=== PATIENT | male | born 1945 | race Caucasian/White ===

== ENCOUNTER 2023-07-19 11:23 | Inpatient (IN) | payer MEDICARE, SELFPAY ==
[2023-07-19] VITALS (18 sets, daily range): BP systolic 126–157; BP diastolic 63–94; PULSE 88–113; RESP 9–18; TEMP 36.4–37.4; O2SAT 95–100; BMI 31.8; BMI 30.5
--- NOTE | 2023-07-19 11:58 | EKG12_ITS ---
Test Reason : Blood Pressure : / mmHG Vent. Rate : 102 BPM Atrial Rate : 102 BPM P-R Int : 168 ms QRS Dur : 090 ms QT Int : 362 ms P-R-T Axes : 045 -01 018 degrees QTc Int : 471 ms Sinus tachycardia with occasional Premature ventricular complexes Nonspecific ST abnormality Abnormal ECG Confirmed by Raymond Smith ([id number]), purchase request editor SIRIA GRIFFIN ([id number]) on 07/22/2023 2:14:32 PM Referred By: Cristian Hurtado Confirmed By:Raymond Smith
--- NOTE | 2023-07-19 12:02 | EX.ED.DYSGE1 ---
HPI <TANA Collado - Last Filed: 07/19/23 15:33> History of Present Illness Chief Complaint: Confusion Narrative Narrative: Patient presenting today due to generalized weakness that started about 2 weeks ago. He reports that he lives by himself, he does not have much family around, he does not like to leave the house much except to go to the grocery store and do his laundry. However, over the past 2 weeks he reports that he has, given up due to feeling tired and weak. He called his cousin to let her know what was going on and she became concerned and called EMS. Patient is AxO x4. He reports that he has been struggling with constipation over the past 2 weeks, last bowel movement was yesterday and was normal for him. He has had intermittent upper abdominal pain over the past 2 weeks. No previous abdominal surgeries. Patient does not have a PCP and denies having any chronic health conditions. He reports that he has been losing weight over the past few months without trying. He also endorses bilateral leg pain that has been a chronic issue for him and recently has made it harder for him to move around. He denies any recent fevers, chills, nausea, vomiting, chest pain, shortness of breath. [facility] <TANA Collado - Last Filed: 07/19/23 15:33> [facility] Home Medications NK 07/19/23 [History Last Taken Unknown] Allergy/AdvReac Type Severity Reaction Status Date / Time No Known Allergies Allergy Verified 07/19/23 11:24 Social History Smoking Status: Never smoker ROS <TANA Collado - Last Filed: 07/19/23 15:33> ROS ED Constitutional Constitutional ED: Denies chills or fever(s) Cardiovascular Cardiovascular: Denies chest pain Respiratory/Chest Respiratory/Chest: Denies cough or dyspnea Gastrointestinal Gastrointestinal: Reports abdominal pain and constipation; Denies nausea or vomiting Genitourinary Genitourinary ED: Denies dysuria, hematuria or urinary urgency Musculoskeletal Musculoskeletal: Reports myalgias Integumentary Denies rash Neurologic Neurologic: Reports weakness; Denies confusion EXAM <TANA Collado Last Filed: 07/19/23 15:33> Physical Exam Const Vital Signs: 07/19/23 11:26 07/19/23 13:24 Temperature 97.8 F Temperature Source Oral Pulse Rate 113 H 95 Respiratory Rate 18 9 L Blood Pressure 151/67 H Blood Pressure Mean 95 Pulse Ox 100 95 Oxygen Delivery Method Room Air Room Air Positive well nourished, well developed and no apparent distress Constitutional Narrative: Pale appearing General Appearance ED: well developed HEENT Reports normocephalic and head/scalp atraumatic Mouth ED: Yes moist mucous membranes normal Eyes PERRL and EOMs intact bilaterally Neck full ROM and supple Chest Wall inspection of chest normal Resp normal respiratory effort and clear to auscultation bilaterally Cardio regular rate and regular rhythm GI soft to palpation, non-tender, non-distended and no masses Back/Spine normal ROM and normal to inspection Extremity normal to inspection and full ROM Neuro oriented x3, CN's II-XII intact bilaterally, moves all extremities, no focal motor deficits and no sensory deficits noted Sensorium / Orientation: awake and alert Psych mental status grossly normal and thought process normal Skin no rashes or lesions noted and no wounds <Dr. Cristian Hurtado DO - Last Filed: 07/19/23 21:39> Physical Exam Const Vital Signs: 07/19/23 11:26 07/19/23 13:24 Temperature 97.8 F Temperature Source Oral Pulse Rate 113 H 95 Respiratory Rate 18 9 L Blood Pressure 151/67 H Blood Pressure Mean 95 Pulse Ox 100 95 Oxygen Delivery Method Room Air Room Air [facility] <TANA Collado - Last Filed: 07/19/23 15:33> [facility] Narrative Medical decision making narrative: Patient presenting due to generalized weakness over the past 2 weeks. He initially did not want to come to the hospital due to concerns for financial aspect of being seen. However, he is willing to have a workup. Triage note does say that patient is confused, however patient is not confused on examination at all. He reports that he was confused as to why EMS came to his house because he did not call them, but then realized it was probably his cousin who called for him to be seen after he had a phone call with her this morning. Patient is very pale appearing. He reports that he does not go outside much and that is normal for him. He denies any melena/hematochezia. Labs will be obtained to rule out leukocytosis, anemia, electrolyte abnormality, JAYNA, UTI, ACS, and hepatobiliary etiology. He reports that he has had this generalized upper abdominal pain intermittently for the past 2 weeks, his abdomen is soft and nontender on exam. Patient's hemoglobin did come back at 3.6. He will be transfused 2 units. I did speak with Dr. Patiño who recommends Protonix 40 mg twice daily and admission to the hospital for further workup. Spoke with the hospitalist, he will be admitted in stable condition and is comfortable with plan. Lab Data Attestation: I reviewed the patient's lab results. Lab results narrative: H&H of 3.6 and 12.1, sodium 135, BUN 24. Labs: Laboratory Results - last 24 hr 07/19/23 07/19/23 12:20 12:20 WBC 9.7 RBC 1.40 L Hgb 3.6 L* Hct 12.1 L MCV 86.4 MCH 25.7 L MCHC 29.8 L RDW Std Deviation 42.8 RDW Coeff of Geena 13.8 Plt Count 369 MPV 8.5 Immature Gran % (Auto) 0.800 Neut % (Auto) 91.0 H Lymph % (Auto) 3.9 L [place] % (Auto) 4.1 Eos % (Auto) 0.1 Baso % (Auto) 0.1 Absolute Neuts (auto) 8.8 H Absolute Lymphs (auto) 0.38 L Nucleated RBC % 0.2 Diff Path Review May foll Hypochromasia 3+ Anisocytosis 2+ Sodium 135 L Potassium 3.8 Chloride 103 Carbon Dioxide 27.0 Anion Gap 5 BUN 24 H Creatinine 0.95 Estim Creat Clear Calc 77.48 Est GFR (MDRD) Af Amer 99 Est GFR (MDRD) Non-Af 82 BUN/Creatinine Ratio 25.3 H Glucose 135 H Calcium 8.0 L Iron 12 L TIBC 334 Iron Saturation 3.6 L Ferritin 4 L Total Bilirubin 0.50 AST 10 L ALT 12 L Alkaline Phosphatase 69 Troponin I High Sens 13 Total Protein 5.6 L Albumin 2.4 L Globulin 3.2 Albumin/Globulin Ratio 0.8 L Lipase 27 Blood Type A POSITIVE Antibody Screen NEGATIVE Crossmatch See Detail See Detail Radiography X-Ray: Read by ED Physician and Read by Radiologist Diagnostic Testing: Clinical Impression(s) from Imaging Studies Chest X-Ray 07/19/23 12:35 IMPRESSION: No acute cardiopulmonary process identified. Electronically Signed: Erin Peace MD at 12:52 EST , <Dr. Cristian Hurtado, DO - Last Filed: 07/19/23 21:39> [facility] Narrative Medical decision making narrative: Patient presenting due to generalized weakness over the past 2 weeks. He initially did not want to come to the hospital due to concerns for financial aspect of being seen. However, he is willing to have a workup. Triage note does say that patient is confused, however patient is not confused on examination at all. He reports that he was confused as to why EMS came to his house because he did not call them, but then realized it was probably his cousin who called for him to be seen after he had a phone call with her this morning. Patient is very pale appearing. He reports that he does not go outside much and that is normal for him. He denies any melena/hematochezia. Labs will be obtained to rule out leukocytosis, anemia, electrolyte abnormality, JAYNA, UTI, ACS, and hepatobiliary etiology. He reports that he has had this generalized upper abdominal pain intermittently for the past 2 weeks, his abdomen is soft and nontender on exam. Patient's hemoglobin did come back at 3.6. He will be transfused 2 units. I did speak with Dr. Patiño who recommends Protonix 40 mg twice daily and admission to the hospital for further workup. Spoke with the hospitalist, he will be admitted in stable condition and is comfortable with plan. Attending note: Patient seen and evaluated with airborne and air delivery specialist. I perform my own [id number] evaluation. I agree with the plan of work-up. Increasing weakness over the last 2 weeks lightheaded over the last 2 days. Has not seen a doctor in years. Cousin called for EMS well check. He did not understand why he was brought here. He does report some dark stools for a long time edition taken Pepto-Bismol here recently. No history endoscopies in the past. No blood thinners. Exam clinically diffuse pallor. Rectal exam by airborne and air delivery specialist with direct stools positive. Workup EKG sinus rhythm rate of 102 with occasional PVCs. Lab work returned hemoglobin 3.6 blood pressure stable. Ordered for blood after consent. Discussed with GI, continue Protonix he will be seen as an inpatient. No antibiotics at this time recommendations. Discussed with hospitalist for admission. Lab Data Labs: Laboratory Results - last 24 hr 07/19/23 07/19/23 12:20 12:20 WBC 9.7 RBC 1.40 L Hgb 3.6 L* Hct 12.1 L MCV 86.4 MCH 25.7 L MCHC 29.8 L RDW Std Deviation 42.8 RDW Coeff of Geena 13.8 Plt Count 369 MPV 8.5 Immature Gran % (Auto) 0.800 Neut % (Auto) 91.0 H Lymph % (Auto) 3.9 L [place] % (Auto) 4.1 Eos % (Auto) 0.1 Baso % (Auto) 0.1 Absolute Neuts (auto) 8.8 H Absolute Lymphs (auto) 0.38 L Nucleated RBC % 0.2 Diff Path Review May foll Hypochromasia 3+ Anisocytosis 2+ Sodium 135 L Potassium 3.8 Chloride 103 Carbon Dioxide 27.0 Anion Gap 5 BUN 24 H Creatinine 0.95 Estim Creat Clear Calc 77.48 Est GFR (MDRD) Af Amer 99 Est GFR (MDRD) Non-Af 82 BUN/Creatinine Ratio 25.3 H Glucose 135 H Calcium 8.0 L Iron 12 L TIBC 334 Iron Saturation 3.6 L Ferritin 4 L Total Bilirubin 0.50 AST 10 L ALT 12 L Alkaline Phosphatase 69 Troponin I High Sens 13 Total Protein 5.6 L Albumin 2.4 L Globulin 3.2 Albumin/Globulin Ratio 0.8 L Lipase 27 Blood Type A POSITIVE Antibody Screen NEGATIVE Crossmatch See Detail See Detail Radiography Diagnostic Testing: Clinical Impression(s) from Imaging Studies Chest X-Ray 07/19/23 12:35 IMPRESSION: No acute cardiopulmonary process identified. Electronically Signed: Erin Peace MD at 12:52 EST , Discharge Plan Dx/Rx/DC Orders Clinical Impression: Anemia, Weakness, Acute GI bleeding Disposition Disposition: Acute Care Hospital [facility] Discharge Date/Time: 07/19/23 15:15
[2023-07-19 12:35] LABS: Absolute Lymphocyte Count 0.38 X10^3/uL (0.83-4.51); Absolute Neutrophil Count 8.8 X10^3/uL (2.0-7.7); Basophil# 0.01 X10^3/uL; Basophil% 0.1 % (0-1); Eosinophil# 0.01 X10^3/uL; Eosinophils% 0.1 % (0-5); Hematocrit 12.1 % (40-54); Hemoglobin 3.6 g/dL (13.0-16.5); Lymphocyte # 0.38 X10^3/ul (0.83-4.51); Lymphocyte % 3.9 % (19-41); Mean Corp Hgb Conc 29.8 g/dL (32-36); Mean Corpuscular Hgb 25.7 pg (27.0-32.0); Mean Corpuscular Volume 86.4 fL (80-94); Mean Platelet Vol. 8.5 fl (6.2-12.0); Monocyte% 4.1 % (0-10); NRBC Flagged by Analyzer 0.2 % (0-5); Neutrophil # 8.81 X10^3/uL (2.7-7.7); POSITIVE COUNT YES; POSITIVE DIFFERENTIAL YES; Platelet Count 369 K/mm3 (150-450); RBC Distribution Width CV 13.8 % (11.6-14.6); RBC Distribution Width SD 42.8 fl (35.1-43.9); White Blood Count 9.7 K/mm3 (4.4-11.0)
--- NOTE | 2023-07-19 12:35 | RAD_ITS ---
HISTORY: weakness. TECHNIQUE: XR Chest 2 Views. COMPARISON: None. FINDINGS: CARDIOMEDIASTINAL BORDERS: Cardiac silhouette within normal limits in size. Mediastinal contour unremarkable. LUNGS: Radiographically clear. PLEURA: No pleural effusion or pneumothorax seen. OSSEOUS STRUCTURES: Degenerative change. RAD/Chest PA and Lateral IMPRESSION: No acute cardiopulmonary process identified. Electronically Signed: Erin Peace MD at 12:52 EST ,
[2023-07-19 12:44] LABS: Differential Indicated SCAN CRITERIA MET
[2023-07-19 12:47] LABS: ALB/GLOB Ratio 0.8 RATIO (0.9-2.4); AST(SGOT) 10 U/L (15-37); Alanine Aminotransfer ALT/SGPT 12 U/L (16-61); Albumin, Serum 2.4 g/dL (3.2-5.0); Alkaline Phosphatase 69 U/L (45-117); Anion Gap 5 (5-15); BUN 24 mg/dL (7-18); BUN/Creat Ratio 25.3 RATIO (10-20); Chloride 103 mmol/L (98-107); Creatinine, Serum 0.95 mg/dL (0.70-1.30); EST Glomerular Filtration Rate 82 mL/min (>60); Est Glom Filt Rate - Afr Amer 99 mL/min (>60); Estimated Creatinine Clearance 77.48 ml/min; Globulin 3.2 g/dL (2.2-4.2); Glucose 135 mg/dL (74-106); Lipase 27 U/L (13-75); Potassium 3.8 mmol/L (3.5-5.1); Protein, Total 5.6 g/dL (6.4-8.2); Sodium Level 135 mmol/L (136-145); Troponin-I HS 13 pg/mL (3.0-78.0)
[2023-07-19 13:17] LABS: Anisocytosis 2+; Hypochromasia 3+
--- NOTE | 2023-07-19 13:44 | HP.PCM_ITS ---
HPI - General General Date of Admission: 07/19/23 Date of Service: 07/19/23 Chief Complaint: weakness, debility HPI Narrative PAYTON GILL, is a 78 M with a PMH as outlined who presents via the ED on 07/19/2023 with a complaint of confusion and weakness. He lives alone with no close family around. He has been getting weaker over hte last couple of weeks and said he had been struggling with constipation. He has had episodic abdominal pain.He says he has had dark stools but thought it was due to peptobismol he was taking for constipation. He denied any nausea, vomiting, fever, chills or any other symptoms. He called his cousin to tell him how he was feeling. His cousin called the EMS to bring him in to the ED. He also had associated unexplained weight loss over the last couple of months. Vitals in the ED were WI of 95. RR of 9. oxygen sats of 95% on room air and BP of 151/67. CBC showed hb of 3.6, wbc of 9.7, platelets of 369. Chemistry showed sodium of 135 and potassium of 3.8 as well as Cr of 0.95. CXR showed no acute cardiop ulmonary process. Stool checked per rectal exam in the ED was dark. He was started on protonix IV and is being admitted to be managed for acute debility and weakness due to acute anemia, likely iron deficient. [facility] Home Medications NK 07/19/23 [History Last Taken Unknown] Allergy/AdvReac Type Severity Reaction Status Date / Time No Known Allergies Allergy Verified 07/19/23 11:24 Social History Smoking Status: Never smoker ROS Constitutional Constitutional: Reports anorexia, change in weight, fatigue, malaise, weakness and weight loss; Denies chills or fever(s) Eyes Eyes: Denies change in vision ENT HEENT: Denies dysphagia, headache(s), hearing loss or loss taste/smell Cardiovascular Cardiovascular: Denies chest pain, claudication, palpitations or paroxysmal nocturnal dyspnea Respiratory/Chest Respiratory/Chest: Denies cough, shortness of breath at rest, shortness of breath with exertion or wheezing Gastrointestinal Gastrointestinal: Reports abdominal pain; Denies constipation or diarrhea Genitourinary Genitourinary: Denies dysuria or nocturia Musculoskeletal Musculoskeletal: Denies back pain or muscle weakness Neurologic Neurologic: Reports weakness; Denies confusion, dizziness, focal weakness, headache(s), lack of coordination, numbness or seizures Psychiatric Psychiatric: Denies anxiety or depression Endocrine Endocrinology: Denies change in body appearance Hematologic/Lymphatic Hematologic/Lymphatic: Reports anemia Vital Signs Vital Signs Vital Signs: 07/19/23 11:26 07/19/23 13:24 Temperature 97.8 F Temperature Source Oral Pulse Rate 113 H 95 Respiratory Rate 18 9 L Blood Pressure 151/67 H Blood Pressure Mean 95 Pulse Ox 100 95 Oxygen Delivery Method Room Air Room Air Weight Weight: 222 lb 3.615 oz Body Mass Index (BMI) 31.8 Physical Exam Const alert Constitutional Narrative: very pale mucosa, elderly General Appearance: cooperative and well developed HEENT normocephalic and head/scalp atraumatic HEENT Narrative: dry oral mucosal membranes Eyes PERRL and EOMs intact bilaterally Neck no lymphadenopathy and supple Lymph Lymphatic: no lymphadenopathy noted, no lymphedema noted and lymphedema Resp normal respiratory effort, normal air movement and clear to auscultation bilaterally Cardio regular rate, regular rhythm, S1 normal heart sound, S2 normal heart sound and no murmurs GI normal to inspection, nondistended, normoactive bowel sounds, soft to palpation and non-tender Extremity normal capillary refill, no clubbing, cyanosis or edema and no calf tenderness General Extremity: no tenderness to palpation of joints or extremities Skin General Skin Exam: no breakdown Neuro CN's II-XII intact bilaterally, no focal motor deficits and no sensory deficits noted Motor Exam: strength 5/5 throughout and general weakness Psych thought process normal, cooperative, affect normal and denies homicidal ideation Results Lab / Micro Data 07/19/23 12:20 07/19/23 12:20 Labs: Laboratory Results - last 24 hr 07/19/23 12:20: WBC 9.7, RBC 1.40 L, Hgb 3.6 L*, Hct 12.1 L, MCV 86.4, MCH 25.7 L, MCHC 29.8 L, RDW Std Deviation 42.8, RDW Coeff of Geena 13.8, Plt Count 369, MPV 8.5, Immature Gran % (Auto) 0.800, Neut % (Auto) 91.0 H, Lymph % (Auto) 3.9 L, [place] % (Auto) 4.1, Eos % (Auto) 0.1, Baso % (Auto) 0.1, Absolute Neuts (auto) 8.8 H, Absolute Lymphs (auto) 0.38 L, Nucleated RBC % 0.2, Diff Path Review May foll, Hypochromasia 3+, Anisocytosis 2+, Sodium 135 L, Potassium 3.8, Chloride 103, Carbon Dioxide 27.0, Anion Gap 5, BUN 24 H, Creatinine 0.95, Estim Creat Clear Calc 77.48, Est GFR (MDRD) Af Amer 99, Est GFR (MDRD) Non-Af 82, BUN/Creatinine Ratio 25.3 H, Glucose 135 H, Calcium 8.0 L, Total Bilirubin 0.50, AST 10 L, ALT 12 L, Alkaline Phosphatase 69, Troponin I High Sens 13, Total Protein 5.6 L, Albumin 2.4 L, Globulin 3.2, Albumin/Globulin Ratio 0.8 L, Lipase 27, Blood Type A POSITIVE, Antibody Screen NEGATIVE, Crossmatch See Detail Imaging Radiology Impression Chest X-Ray 07/19/23 12:35 IMPRESSION: No acute cardiopulmonary process identified. Electronically Signed: Erin Peace MD at 12:52 EST Reading Location ID and State: [facility] / [place] Tel , Service support , Assessment & Plan Assessment/Plan (1) Anemia: (2) Weakness: PLAN: Plan #Acute on chronic anemia * etiology unclear, may be due to an underlying malignancy in light of the dark stools and unexplained weight loss * Hb is 3.6 * admit to PCU * check iron profile and ferritin * keep NPO * GI consulted * transfuse with 2 units of PRBCs * IV pantoprazole drip * hydrate gently with iVF NS @ 125cc/hr * #Debilty and failure to thrive * likely due to underlying anemia * PT/OT on board * fall precautions * management of anemia as above * #Elevated blood pressure: * Not a known hypertensive. * Blood pressure has been in the 140s and 150s systolic though was done in the 120 systolic earlier today. IV hydralazine as needed. * If remains elevated will benefit from starting all blood pressure medications. * DVT prophylaxis: SCDs. No anticoagulation due to anemia COde status: full code * Patient counseled extensively about different types of CODE STATUS including full code, DNR CCA and DNR CCA. Patient elects to be full code. He doesnt have any close relatives he would want to be his POA. He does have two cousins but he is not sure he would want either of them to be his POA. He wants to think about it some more and will let the hospitalist team know tomorrow. * Total [id number] time 17 minutes. Charges/Coding Visit Charges Inpatient E&M: 00704 Init Hosp L3 Procedures Hospitalists Procedures: 84138 Advncd Care Plan 30 Min
[2023-07-19] MEDS: Pantoprazole Sodium 40 MG in 0.9% Normal Saline (100mL MB+) 100 ML 330 MG IV (14:00)
[2023-07-19 14:52] LABS: Ferritin 4 ng/mL (26-388); Iron 12 ug/dL (65-175); Iron Binding Capacity,Total 334 ug/dL (250-450); PERCENT IRON SATURATION 3.6 % (15.0-55.0)
[2023-07-19 20:50] LABS: Absolute Lymphocyte Count 1.15 X10^3/uL (0.83-4.51); Absolute Neutrophil Count 6.8 X10^3/uL (2.0-7.7); Basophil# 0.01 X10^3/uL; Basophil% 0.1 % (0-1); Eosinophil# 0.06 X10^3/uL; Eosinophils% 0.7 % (0-5); Hematocrit 15.3 % (40-54); Lymphocyte # 1.15 X10^3/ul (0.83-4.51); Lymphocyte % 13.3 % (19-41); Mean Corpuscular Hgb 26.9 pg (27.0-32.0); Mean Corpuscular Volume 84.1 fL (80-94); Mean Platelet Vol. 8.6 fl (6.2-12.0); Monocyte# 0.56 X10^3/uL; Monocyte% 6.5 % (0-10); NRBC Flagged by Analyzer 0 % (0-5); Neutrophil # 6.78 X10^3/uL (2.7-7.7); Neutrophil % 78.6 % (47-70); POSITIVE COUNT YES; Platelet Count 303 K/mm3 (150-450); RBC Distribution Width CV 14.7 % (11.6-14.6); RBC Distribution Width SD 45.1 fl (35.1-43.9); Red Blood Count 1.82 M/mm3 (4.6-6.2); White Blood Count 8.6 K/mm3 (4.4-11.0)
[2023-07-19 20:57] LABS: Differential Indicated SCAN CRITERIA MET; Hemoglobin 4.9 g/dL (13.0-16.5)
--- NOTE | 2023-07-19 21:02 | PCM.HOSP.N ---
Hospitalist Note Repeat Hgb 4.9, 4 u PRBC ordered, will given 2 now with lasix in between and repeat HH 1 hour following completion.
[2023-07-19 21:13] LABS: Anisocytosis RARE; Microcytosis RARE; Ovalocyte RARE; Platelet Estimate ADEQUATE (ADEQ); Red Cell Morphology N CHROM NORMAL (NORM C&C)
[2023-07-19 21:14] LABS: Hypochromasia 2+
[2023-07-19] MEDS: 0.9% Saline Lock 10 ML Syringe IV (21:26)
[2023-07-19] MEDS: 0.9% Normal Saline (1000mL) 1,000 ML 125 ML IV (21:26)
[2023-07-20] VITALS (15 sets, daily range): BP systolic 131–166; BP diastolic 68–90; PULSE 80–100; RESP 16–20; TEMP 36.8–37.2; O2SAT 96–100
[2023-07-20] MEDS: 0.9% Saline Lock 10 ML Syringe IV ×3 (01:32→21:41)
[2023-07-20] MEDS: Furosemide 20 MG/2 ML VIAL IV (01:46)
[2023-07-20 07:05] LABS: Absolute Lymphocyte Count 0.79 X10^3/uL (0.83-4.51); Absolute Neutrophil Count 6.5 X10^3/uL (2.0-7.7); Basophil# 0.04 X10^3/uL; Basophil% 0.5 % (0-1); Eosinophils% 1.3 % (0-5); Hematocrit 21.4 % (40-54); Hemoglobin 6.9 g/dL (13.0-16.5); Lymphocyte # 0.79 X10^3/ul (0.83-4.51); Mean Corp Hgb Conc 32.2 g/dL (32-36); Mean Corpuscular Hgb 26.6 pg (27.0-32.0); Mean Corpuscular Volume 82.6 fL (80-94); Mean Platelet Vol. 8.3 fl (6.2-12.0); Monocyte# 0.45 X10^3/uL; Monocyte% 5.7 % (0-10); NRBC Flagged by Analyzer 0.5 % (0-5); Neutrophil # 6.45 X10^3/uL (2.7-7.7); Neutrophil % 81.4 % (47-70); Platelet Count 239 K/mm3 (150-450); RBC Distribution Width CV 15.2 % (11.6-14.6); RBC Distribution Width SD 45.1 fl (35.1-43.9); Red Blood Count 2.59 M/mm3 (4.6-6.2); White Blood Count 7.9 K/mm3 (4.4-11.0)
[2023-07-20 07:19] LABS: Anion Gap 5 (5-15); BUN 20 mg/dL (7-18); BUN/Creat Ratio 21.6 RATIO (10-20); Calcium,Total 7.5 mg/dL (8.5-10.1); Chloride 105 mmol/L (98-107); Creatinine, Serum 0.93 mg/dL (0.70-1.30); EST Glomerular Filtration Rate 84 mL/min (>60); Est Glom Filt Rate - Afr Amer 102 mL/min (>60); Estimated Creatinine Clearance 77.56 ml/min; Glucose 97 mg/dL (74-106); Potassium 3.3 mmol/L (3.5-5.1); Sodium Level 137 mmol/L (136-145)
--- NOTE | 2023-07-20 09:30 | PN.HOSP_ITS ---
Reason for Visit Reason for Visit: Diagnoses Anemia, unspecified (07/19/23) Weakness (07/19/23) Objective Data Objective Data Vital Signs: Vital Signs Temp Pulse Resp BP Pulse Ox O2 Del Method 98.8 F 85 20 H 142/82 H 96 Room Air 07/20/23 07:35 07/20/23 07:35 07/20/23 07:35 07/20/23 07:35 07/20/23 07:35 07/20/23 07:35 Oxygen Delivery Method Room Air Weight: 212 lb 15.465 oz Body Mass Index (BMI) 30.5 Intake & Output: Intake and Output for Last 24 Hours 07/18/23 07/19/23 07/20/23 23:59 23:59 23:59 Intake Total 175.58 / 175.58 2 / 2 Output Total 500 / 500 1100 / 1100 Balance -324.42 / -324.42 -1098 / -1098 Lab / Micro Data 07/20/23 06:45 07/20/23 06:45 Labs: Laboratory Results - last 24 hr 07/19/23 12:20: WBC 9.7, RBC 1.40 L, Hgb 3.6 L*, Hct 12.1 L, MCV 86.4, MCH 25.7 L, MCHC 29.8 L, RDW Std Deviation 42.8, RDW Coeff of Geena 13.8, Plt Count 369, MPV 8.5, Immature Gran % (Auto) 0.800, Neut % (Auto) 91.0 H, Lymph % (Auto) 3.9 L, [place] % (Auto) 4.1, Eos % (Auto) 0.1, Baso % (Auto) 0.1, Absolute Neuts (auto) 8.8 H, Absolute Lymphs (auto) 0.38 L, Nucleated RBC % 0.2, Diff Path Review May foll, Hypochromasia 3+, Anisocytosis 2+, Sodium 135 L, Potassium 3.8, Chloride 103, Carbon Dioxide 27.0, Anion Gap 5, BUN 24 H, Creatinine 0.95, Estim Creat Clear Calc 77.48, Est GFR (MDRD) Af Amer 99, Est GFR (MDRD) Non-Af 82, BUN/Creatinine Ratio 25.3 H, Glucose 135 H, Calcium 8.0 L, Iron 12 L, TIBC 334, Iron Saturation 3.6 L, Ferritin 4 L, Total Bilirubin 0.50, AST 10 L, ALT 12 L, Alkaline Phosphatase 69, Troponin I High Sens 13, Total Protein 5.6 L, Albumin 2.4 L, Globulin 3.2, Albumin/Globulin Ratio 0.8 L, Lipase 27, Blood Type A POSITIVE, Antibody Screen NEGATIVE, Crossmatch See Detail 07/19/23 12:20: Crossmatch See Detail 07/19/23 20:30: WBC 8.6, RBC 1.82 L, Hgb 4.9 L*, Hct 15.3 L, MCV 84.1, MCH 26.9 L, MCHC 32.0 D, RDW Std Deviation 45.1 H, RDW Coeff of Geena 14.7 H, Plt Count 303, MPV 8.6, Immature Gran % (Auto) 0.800, Neut % (Auto) 78.6 H, Lymph % (Auto) 13.3 L, [place] % (Auto) 6.5, Eos % (Auto) 0.7, Baso % (Auto) 0.1, Absolute Neuts (auto) 6.8, Absolute Lymphs (auto) 1.15, Nucleated RBC % 0, Diff Path Review September, Platelet Estimate ADEQUATE, RBC Morphology N CHROM, Hypochromasia 2+, Anisocytosis RARE, Microcytosis RARE, Ovalocytes RARE 07/20/23 06:45: WBC 7.9, RBC 2.59 L, Hgb 6.9 L, Hct 21.4 L, MCV 82.6, MCH 26.6 L , MCHC 32.2, RDW Std Deviation 45.1 H, RDW Coeff of Geena 15.2 H, Plt Count 239, MPV 8.3, Immature Gran % (Auto) 1.100 H, Neut % (Auto) 81.4 H, Lymph % (Auto) 10.0 L, [place] % (Auto) 5.7, Eos % (Auto) 1.3, Baso % (Auto) 0.5, Absolute Neuts ( auto) 6.5, Absolute Lymphs (auto) 0.79 L, Nucleated RBC % 0.5, Sodium 137, Potassium 3.3 L, Chloride 105, Carbon Dioxide 27.0, Anion Gap 5, BUN 20 H, Creatinine 0.93, Estim Creat Clear Calc 77.56, Est GFR (MDRD) Af Amer 102, Est GFR (MDRD) Non-Af 84, BUN/Creatinine Ratio 21.6 H, Glucose 97, Calcium 7.5 L Micro: Microbiology 07/19/23 13:40 Stool Stool Occult Blood (ROSEMARY) - Final Occult Blood Positive Radiography Diagnostic Testing: Radiology Impression Chest X-Ray 07/19/23 12:35 IMPRESSION: No acute cardiopulmonary process identified. Electronically Signed: Erin Peace MD at 12:52 EST , Physical Exam Narrative Seen and examined Patient is states chronic tiredness fatigue and dyspnea on exertion mostly due to severe anemia. Patient states he gets darker stool attributed to the Pepto- Bismol General: Alert, Oriented x3, Cooperative. Very pale looking fatigue HEENT: Atraumatic, PERRLA, EOMI, Normocephalic Oral: Oral mucosa moist. No Gingival or Mucosal Lesions/ Ulcerations Neck: Supple, No JVD, Negative Carotid Bruits Chest wall/Lungs: Air entry diminished in bilateral lung bases. No crepitation/rhonchi Cardiovascular: Regular rate, Regular Rhythm, Normal S1, Normal S2, No M/G/R Abdomen: Bowel Sounds Present, Soft, Non Tender, Non-Distended : No dysuria. No renal angle tenderness. No suprapubic tenderness. Extremities: Mild pitting edema, Capillary Refill Less than 3 Seconds Skin: No rashes, No breakdown Musculoskeletal: No Tenderness to Palpation of Joints or Extremities. ROM intact. Neurological: Cranial nerves II-XII grossly intact, DTR 2+/4. No acute focal neurological deficit. Psych/Mental Status: Flat affect. Assessment & Plan Assessment/Plan (1) Anemia: (2) Weakness: PLAN: Plan This is 78-year-old gentleman who was brought by EMS for generalized weakness for about 2 weeks along with confusion. He has not gone outside for grocery or laundry because of tiredness/weakness. Constipation for past 2 weeks, but had last BM yesterday. Intermittent upper abdominal pain for past 2 weeks. No prev ious abdominal surgeries. Has been losing weight for past 2 months. Other chronic issues include bilateral leg pain. No fever chills nausea vomiting chest pain shortness of breath. #Acute on chronic anemia: Patient is admitted to PCU. Admitted with hemoglobin 3.6. Iron profile consistent with iron versus anemia with iron saturation 3.6%, low ferritin 4, iron 12 TIBC normal. GI is consulted. Hemoglobin was 6.9 after 3 units of transfusion therefore 1 more unit is ordered. On IV PPI drip. Chest x-ray initially reviewed symptoms gas shadow in the chest area consistent with hiatus hernia. Cardiomegaly. GI is consulted. PT and OT. #Elevated blood pressure: * Not a known hypertensive. * Blood pressure has been in the 140s and 150s systolic though was done in the 120 systolic earlier today. BP 158/87. * Started on lisinopril 10 mg daily. The patient will need home or ambulatory BP monitoring to diagnose hypertension. DVT prophylaxis: SCDs. No anticoagulation due to anemia COde status: full code * Patient counseled extensively about different types of CODE STATUS including full code, DNR CCA and DNR CCA. Patient elects to be full code. He doesnt have any close relatives he would want to be his POA. He does have two cousins but he is not sure he would want either of them to be his POA. He wants to think about it some more and will let the hospitalist team know tomorrow. Charges/Coding Visit Charges Inpatient E&M: 37573 Subs Hosp L2
--- NOTE | 2023-07-20 12:47 | CASEMGMT ---
RN CM Assessment: Face to Face with pt for initial transition planning/care coordination assessment. RN DONALDO introduced self and role at [facility], pt voices understanding and consents to assessment. Pt is A&O x4, cousin Carmen Moses at bedside and pt agreeable to speaking with visitor present, and answers all questions appropriately at this time. Care providers, pharmacy, and demographics verified/updated. Admitting Dx: acute anemia PCP: None- pt reports that he does not follow with doctors or hospitals and has not in the past. Pt reports he does not believe in doing so. Specialists: None Preferred Pharmacy: None, pt reports he does not have prescription drug coverage and does not believe in taking medication. Pt reports he only takes aspirin and nathan seltzer when needed. Insurance: Medicare A/B Prescription Benefit: no LNOK: Cousin Carmen Mello [phone] Living Arrangements: Pt lives at home, alone. Pt has 2 steps into the home and has no trouble managing them at baseline. Pt is independent at baseline. Transportation: Pt drives self and denies concerns with transportation. DME: None HHC/SNF: None Pt states no concerns with going home at time of dc. Pt states no further concerns/needs. CM to follow. Advised pt to ask CM if any further question/concerns/needs arise, voices understanding. Pt Goal: Home Plan: Home. Discussed with pt the importance of getting up and ambulating once appropriate so he can regain his strenght. Discussed therapy at discharge as a possible need. Pt reports he was fine just a few weeks ago but very weak the week prior to admission and currently. Prema Wolff MSN, RN, CCM
--- NOTE | 2023-07-20 14:02 | PCM.PN.HOSP ---
Reason for Visit Reason for Visit: Diagnoses Anemia, unspecified (07/19/23) Weakness (07/19/23) Objective Data Objective Data Vital Signs: Vital Signs Temp Pulse Resp BP Pulse Ox O2 Del Method 98.2 F 80 16 158/87 H 97 Room Air 07/20/23 12:44 07/20/23 12:44 07/20/23 12:44 07/20/23 12:44 07/20/23 12:44 07/20/23 12:44 Oxygen Delivery Method Room Air Weight: 212 lb 15.465 oz Body Mass Index (BMI) 30.5 Intake & Output: Intake and Output for Last 24 Hours 07/18/23 07/19/23 07/20/23 23:59 23:59 23:59 Intake Total 175.58 / 175.58 594.67 / 594.67 Output Total 500 / 500 1100 / 1100 Balance -324.42 / -324.42 -505.33 / -505.33 Lab / Micro Data 07/20/23 06:45 07/20/23 06:45 Labs: Laboratory Results - last 24 hr 07/19/23 12:20: Iron 12 L, TIBC 334, Iron Saturation 3.6 L, Ferritin 4 L, Blood Type A POSITIVE, Antibody Screen NEGATIVE, Crossmatch See Detail 07/19/23 12:20: Crossmatch See Detail 07/19/23 20:30: WBC 8.6, RBC 1.82 L, Hgb 4.9 L*, Hct 15.3 L, MCV 84.1, MCH 26.9 L, MCHC 32.0 D, RDW Std Deviation 45.1 H, RDW Coeff of Geena 14.7 H, Plt Count 303, MPV 8.6, Immature Gran % (Auto) 0.800, Neut % (Auto) 78.6 H, Lymph % (Auto) 13.3 L, Wise % (Auto) 6.5, Eos % (Auto) 0.7, Baso % (Auto) 0.1, Absolute Neuts (auto) 6.8, Absolute Lymphs (auto) 1.15, Nucleated RBC % 0, Diff Path Review May foll, Platelet Estimate ADEQUATE, RBC Morphology N CHROM, Hypochromasia 2+, Anisocytosis RARE, Microcytosis RARE, Ovalocytes RARE 07/20/23 06:45: WBC 7.9, RBC 2.59 L, Hgb 6.9 L, Hct 21.4 L, MCV 82.6, MCH 26.6 L, MCHC 32.2, RDW Std Deviation 45.1 H, RDW Coeff of Geena 15.2 H, Plt Count 239, MPV 8.3, Immature Gran % (Auto) 1.100 H, Neut % (Auto) 81.4 H, Lymph % (Auto) 10.0 L, Wise % (Auto) 5.7, Eos % (Auto) 1.3, Baso % (Auto) 0.5, Absolute Neuts (auto) 6.5, Absolute Lymphs (auto) 0.79 L, Nucleated RBC % 0.5, Sodium 137, Potassium 3.3 L, Chloride 105, Carbon Dioxide 27.0, Anion Gap 5, BUN 20 H, Creatinine 0.93, Estim Creat Clear Calc 77.56, Est GFR (MDRD) Af Amer 102, Est GFR (MDRD) Non-Af 84, BUN/Creatinine Ratio 21.6 H, Glucose 97, Calcium 7.5 L Micro: Microbiology 07/19/23 13:40 Stool Stool Occult Blood (ROSEMARY) - Final Occult Blood Positive Assessment & Plan Assessment/Plan (1) Anemia: (2) Weakness: PLAN: Plan This is 78-year-old gentleman who was brought by EMS for generalized weakness for about 2 weeks along with confusion. He has not gone outside for grocery or laundry because of tiredness/weakness. Constipation for past 2 weeks, but had last BM yesterday. Intermittent upper abdominal pain for past 2 weeks. No previous abdominal surgeries. Has been losing weight for past 2 months. Other chronic issues include bilateral leg pain. No fever chills nausea vomiting chest pain shortness of breath. #Acute on chronic anemia etiology unclear, may be due to an underlying malignancy in light of the dark stools and unexplained weight loss Hb is 3.6 admit to PCU check iron profile and ferritin keep NPO GI consulted transfuse with 2 units of PRBCs IV pantoprazole drip hydrate gently with iVF NS @ 125cc/hr #Debilty and failure to thrive likely due to underlying anemia PT/OT on board fall precautions management of anemia as above #Elevated blood pressure: Not a known hypertensive. Blood pressure has been in the 140s and 150s systolic though was done in the 120 systolic earlier today. IV hydralazine as needed. If remains elevated will benefit from starting all blood pressure medications. DVT prophylaxis: SCDs. No anticoagulation due to anemia COde status: full code Patient counseled extensively about different types of CODE STATUS including full code, DNR CCA and DNR CCA. Patient elects to be full code. He doesnt have any close relatives he would want to be his POA. He does have two cousins but he is not sure he would want either of them to be his POA. He wants to think about it some more and will let the hospitalist team know tomorrow. Total [id number] time 17 minutes.
--- NOTE | 2023-07-20 14:36 | CON.PCM.GI_ITS ---
HPI Consult Data Date of Consult: 07/20/23 HPI Narrative Reason for Consultation: Anemia HPI Narrative: PAYTON GILL, is a78 M with a PMH as outlined who presents via the ED on 07/19/2023 with a complaint of confusion and weakness. He lives alone with no close family around. He has been getting weaker over hte last couple of weeks and said he had been struggling with constipation. He has had episodic abdominal pain.He says he has had dark stools but thought it was due to peptobismol he was taking for constipation. He denied any nausea, vomiting, fever, chills or any other symptoms. He called his cousin to tell him how he was feeling. His cousin called the EMS to bring him in to the ED. He also had associated unexplained weight loss over the last couple of months. Vitals in the ED were CA of 95. RR of 9. oxygen sats of 95% on room air and BP of 151/67. CBC showed hb of 3.6, wbc of 9.7, platelets of 369. Chemistry showed sodium of 135 and potassium of 3.8 as well as Cr of 0.95. CXR showed no acute cardiopulmonary process. Stool checked per rectal exam in the ED was dark. He was started on protonix IV and is being admitted to be managed for acute debility and weakness due to acute anemia, likely iron deficient. I was consulted for management of anemia. [facility] Home Medications NK 07/19/23 [History Last Taken Unknown] Allergy/AdvReac Type Severity Reaction Status Date / Time No Known Allergies Allergy Verified 07/19/23 11:24 Social History Smoking Status: Never smoker ROS Constitutional Constitutional: Reports anorexia, change in weight, fatigue, malaise, weakness and weight loss; Denies chills or fever(s) Eyes Eyes: Denies change in vision ENT HEENT: Denies dysphagia, headache(s), hearing loss or loss taste/smell Cardiovascular Cardiovascular: Denies chest pain, claudication, palpitations or paroxysmal nocturnal dyspnea Respiratory/Chest Respiratory/Chest: Denies cough, shortness of breath at rest, shortness of breath with exertion or wheezing Gastrointestinal Gastrointestinal: Reports abdominal pain; Denies constipation or diarrhea Genitourinary Genitourinary: Denies dysuria or nocturia Musculoskeletal Musculoskeletal: Denies back pain or muscle weakness Neurologic Neurologic: Reports weakness; Denies confusion, dizziness, focal weakness, headache(s), lack of coordination, numbness or seizures Psychiatric Psychiatric: Denies anxiety or depression Endocrine Endocrinology: Denies change in body appearance Hematologic/Lymphatic Hematologic/Lymphatic: Reports anemia Lab / Micro Data 07/20/23 06:45 07/20/23 06:45 Labs: Laboratory Results - last 24 hr 07/19/23 12:20: Iron 12 L, TIBC 334, Iron Saturation 3.6 L, Ferritin 4 L, Blood Type A POSITIVE, Antibody Screen NEGATIVE, Crossmatch See Detail 07/19/23 12:20: Crossmatch See Detail 07/19/23 20:30: WBC 8.6, RBC 1.82 L, Hgb 4.9 L*, Hct 15.3 L, MCV 84.1, MCH 26.9 L, MCHC 32.0 D, RDW Std Deviation 45.1 H, RDW Coeff of Geena 14.7 H, Plt Count 303, MPV 8.6, Immature Gran % (Auto) 0.800, Neut % (Auto) 78.6 H, Lymph % (Auto) 13.3 L, Person % (Auto) 6.5, Eos % (Auto) 0.7, Baso % (Auto) 0.1, Absolute Neuts (auto) 6.8, Absolute Lymphs (auto) 1.15, Nucleated RBC % 0, Diff Path Review September, Platelet Estimate ADEQUATE, RBC Morphology N CHROM, Hypochromasia 2+, Anisocytosis RARE, Microcytosis RARE, Ovalocytes RARE 07/20/23 06:45: WBC 7.9, RBC 2.59 L, Hgb 6.9 L, Hct 21.4 L, MCV 82.6, MCH 26.6 L , MCHC 32.2, RDW Std Deviation 45.1 H, RDW Coeff of Geena 15.2 H, Plt Count 239, MPV 8.3, Immature Gran % (Auto) 1.100 H, Neut % (Auto) 81.4 H, Lymph % (Auto) 10.0 L, Person % (Auto) 5.7, Eos % (Auto) 1.3, Baso % (Auto) 0.5, Absolute Neuts (auto) 6.5, Absolute Lymphs (auto) 0.79 L, Nucleated RBC % 0.5, Sodium 137, Potassium 3.3 L, Chloride 105, Carbon Dioxide 27.0, Anion Gap 5, BUN 20 H, Creatinine 0.93, Estim Creat Clear Calc 77.56, Est GFR (MDRD) Af Amer 102, Est GFR (MDRD) Non-Af 84, BUN/Creatinine Ratio 21.6 H, Glucose 97, Calcium 7.5 L Micro: Microbiology 07/19/23 13:40 Stool Stool Occult Blood (ROSEMARY) - Final Occult Blood Positive Assessment & Plan Assessment/Plan (1) Anemia: (2) Weakness: PLAN: Plan #Acute on chronic anemia * etiology unclear, may be due to an underlying malignancy in light of the dark stools and unexplained weight loss * Hb is 3.6 * admit to PCU * check iron profile and ferritin * keep NPO * EGD and colonoscopy * transfuse with 2 units of PRBCs * IV pantoprazole drip * hydrate gently with iVF NS @ 125cc/hr * Charges/Coding Visit Charges Inpatient E&M: 66664 Init Hosp L3
[2023-07-20] MEDS: Lisinopril 10 MG Tablet PO (15:14)
[2023-07-20 16:16] LABS: Hematocrit 25.8 % (40-54); Hemoglobin 8.4 g/dL (13.0-16.5)
[2023-07-20] MEDS: Pantoprazole Sodium 40 MG in 0.9% Normal Saline (100mL MB+) 100 ML 330 MG IV (21:41)
[2023-07-20] MEDS: Polyethylene Glycol 3350 17 GM PACKET PO (21:41)
[2023-07-20 23:01] LABS: Mucous, Urine 0 SEEN /hpf (<or=2+); Red Blood Cells-Urine 0 SEEN /hpf (0-5); Squamous Epithelial Cells - UA 0 SEEN /hpf (0-5)
[2023-07-20 23:04] LABS: Color, Urine Yellow (Yellow); Glucose, Dipstick Normal (Normal); Leukocyte Esterase-Dipstick 500 /ul (Negative); Nitrite-Dipstick Negative (Negative); Occult Blood-Urine 10 /ul (Negative); Protein-Dipstick 15 mg/dl (Negative); Urine Bilirubin Dipstick Negative (Negative); Urine Clarity Clear (Clear); Urine Urobilinogen 1 mg/dl (Normal)
[2023-07-20 23:16] LABS: Ketone-Dipstick 150 mg/dl (Negative)
[2023-07-20 23:21] LABS: White Blood Cells 5-10 SEEN /hpf (0-5)
[2023-07-20 23:22] LABS: Bacteria RARE /hpf (None Seen)
[2023-07-21 00:47] VITALS: BP 142/74; PULSE 83; RESP 16; TEMP 36.8; O2SAT 99
[2023-07-21 05:33] VITALS: BP 143/76; PULSE 80; RESP 16; TEMP 36.8; O2SAT 97
[2023-07-21 06:52] LABS: Absolute Lymphocyte Count 1.15 X10^3/uL (0.83-4.51); Absolute Neutrophil Count 5.5 X10^3/uL (2.0-7.7); Basophil# 0.03 X10^3/uL; Basophil% 0.4 % (0-1); Eosinophil# 0.22 X10^3/uL; Hematocrit 25.1 % (40-54); Hemoglobin 8.2 g/dL (13.0-16.5); Lymphocyte # 1.15 X10^3/ul (0.83-4.51); Lymphocyte % 15.5 % (19-41); Mean Corp Hgb Conc 32.7 g/dL (32-36); Mean Corpuscular Hgb 27.5 pg (27.0-32.0); Mean Corpuscular Volume 84.2 fL (80-94); Mean Platelet Vol. 8.3 fl (6.2-12.0); Monocyte# 0.46 X10^3/uL; Monocyte% 6.2 % (0-10); NRBC Flagged by Analyzer 0.5 % (0-5); Neutrophil # 5.51 X10^3/uL (2.7-7.7); Neutrophil % 74.4 % (47-70); Platelet Count 246 K/mm3 (150-450); RBC Distribution Width CV 15.3 % (11.6-14.6); RBC Distribution Width SD 46.5 fl (35.1-43.9); Red Blood Count 2.98 M/mm3 (4.6-6.2); White Blood Count 7.4 K/mm3 (4.4-11.0)
[2023-07-21 07:10] LABS: Anion Gap 7 (5-15); BUN 16 mg/dL (7-18); BUN/Creat Ratio 18.3 RATIO (10-20); Calcium,Total 7.6 mg/dL (8.5-10.1); Chloride 105 mmol/L (98-107); Creatinine, Serum 0.87 mg/dL (0.70-1.30); EST Glomerular Filtration Rate 90 mL/min (>60); Est Glom Filt Rate - Afr Amer 109 mL/min (>60); Estimated Creatinine Clearance 82.91 ml/min; Glucose 78 mg/dL (74-106); Potassium 3.5 mmol/L (3.5-5.1); Sodium Level 136 mmol/L (136-145)
[2023-07-21] MEDS: Polyethylene Glycol 3350 17 GM PACKET PO (09:02)
[2023-07-21] MEDS: Lisinopril 10 MG Tablet PO (09:02)
[2023-07-21] MEDS: Pantoprazole Sodium 40 MG in 0.9% Normal Saline (100mL MB+) 100 ML 330 MG IV ×2 (09:03→21:39)
[2023-07-21] MEDS: 0.9% Saline Lock 10 ML Syringe IV ×2 (09:03→17:27)
[2023-07-21 11:00] VITALS: BP 149/75; PULSE 79; RESP 16; TEMP 36.8; O2SAT 97
--- NOTE | 2023-07-21 12:18 | PN.GI_ITS ---
Subjective Subjective Patient continues to improve with his hemoglobin at a low 8 marker between 8.2 and 8.4. Objective Data Objective Data Vital Signs: Vital Signs Temp Pulse Resp BP Pulse Ox O2 Del Method 98.2 F 80 16 143/76 H 97 Room Air 07/21/23 05:33 07/21/23 05:33 07/21/23 05:33 07/21/23 05:33 07/21/23 05:33 07/21/23 05:33 Oxygen Delivery Method Room Air Weight: 212 lb 15.465 oz Body Mass Index (BMI) 30.5 Intake & Output: Intake and Output for Last 24 Hours 07/19/23 07/20/23 07/22/23 23:59 23:59 00:59 Intake Total 175.58 / 175.58 1021.34 / 1621.34 937.08 / 937.08 Output Total 500 / 500 1950 / 1950 325 / 325 Balance -324.42 / -324.42 -928.66 / -328.66 612.08 / 612.08 Lab / Micro Data 07/21/23 05:31 07/21/23 05:31 Labs: Laboratory Results - last 24 hr 07/19/23 12:20: Crossmatch See Detail 07/19/23 22:45: Urine Color Yellow, Urine Clarity Clear, Urine pH 7.0, Ur Specific [place] 1.010, Urine Protein 15 H, Urine Glucose (UA) Normal, Urine Ketones 150 A*, Urine Occult Blood 10 H, Urine Nitrite Negative, Urine Bilirubin Negative, Urine Urobilinogen 1 H, Ur Leukocyte Esterase 500 H, Urine RBC 0 SEEN, Urine WBC 5-10 SEEN, Ur Squamous Epith Cells 0 SEEN, Urine Bacteria RARE, Urine Mucus 0 SEEN 07/20/23 15:51: Hgb 8.4 L, Hct 25.8 L 07/21/23 05:31: WBC 7.4, RBC 2.98 L, Hgb 8.2 L, Hct 25.1 L, MCV 84.2, MCH 27.5, MCHC 32.7, RDW Std Deviation 46.5 H, RDW Coeff of Geena 15.3 H, Plt Count 246, MPV 8.3, Immature Gran % (Auto) 0.500, Neut % (Auto) 74.4 H, Lymph % (Auto) 15.5 L, Wolfe % (Auto) 6.2, Eos % (Auto) 3.0, Baso % (Auto) 0.4, Absolute Neuts (auto) 5.5, Absolute Lymphs (auto) 1.15, Nucleated RBC % 0.5, Sodium 136, Potassium 3.5, Chloride 105, Carbon Dioxide 24.0, Anion Gap 7, BUN 16, Creatinine 0.87, Estim Creat Clear Calc 82.91, Est GFR (MDRD) Af Amer 109, Est GFR (MDRD) Non-Af 90, BUN/Creatinine Ratio 18.3, Glucose 78, Calcium 7.6 L Micro: Microbiology 07/19/23 13:40 Stool Stool Occult Blood (ROSEMARY) - Final Occult Blood Positive Physical Exam Narrative Seen and examined Patient is states chronic tiredness fatigue and dyspnea on exertion mostly due to severe anemia. Patient states he gets darker stool attributed to the Pepto- Bismol General: Alert, Oriented x3, Cooperative. Very pale looking fatigue HEENT: Atraumatic, PERRLA, EOMI, Normocephalic Oral: Oral mucosa moist. No Gingival or Mucosal Lesions/ Ulcerations Neck: Supple, No JVD, Negative Carotid Bruits Chest wall/Lungs: Air entry diminished in bilateral lung bases. No crepitation/rhonchi Cardiovascular: Regular rate, Regular Rhythm, Normal S1, Normal S2, No M/G/R Abdomen: Bowel Sounds Present, Soft, Non Tender, Non-Distended : No dysuria. No renal angle tenderness. No suprapubic tenderness. Extremities: Mild pitting edema, Capillary Refill Less than 3 Seconds Skin: No rashes, No breakdown Musculoskeletal: No Tenderness to Palpation of Joints or Extremities. ROM intact. Neurological: Cranial nerves II-XII grossly intact, DTR 2+/4. No acute focal neurological deficit. Psych/Mental Status: Flat affect. Const alert Constitutional Narrative: very pale mucosa, elderly General Appearance: cooperative and well developed HEENT normocephalic and head/scalp atraumatic HEENT Narrative: dry oral mucosal membranes Eyes PERRL and EOMs intact bilaterally Neck no lymphadenopathy and supple Lymph Lymphatic: no lymphadenopathy noted, no lymphedema noted and lymphedema Resp normal respiratory effort, normal air movement and clear to auscultation bilaterally Cardio regular rate, regular rhythm, S1 normal heart sound, S2 normal heart sound and no murmurs GI normal to inspection, nondistended, normoactive bowel sounds, soft to palpation and non-tender Extremity normal capillary refill, no clubbing, cyanosis or edema and no calf tenderness General Extremity: no tenderness to palpation of joints or extremities Skin General Skin Exam: no breakdown Neuro CN's II-XII intact bilaterally, no focal motor deficits and no sensory deficits noted Motor Exam: strength 5/5 throughout and general weakness Psych thought process normal, cooperative, affect normal and denies homicidal ideation Assessment & Plan Assessment/Plan (1) Acute GI bleeding: (2) Anemia: (3) Dysphagia: PLAN: Plan #Acute on chronic anemia * etiology unclear, may be due to an underlying malignancy in light of the dark stools and unexplained weight loss * Hb is 8.4 * admit to PCU * check iron profile and ferritin * keep NPO * EGD and colonoscopy * transfuse with 2 units of PRBCs * IV pantoprazole drip * hydrate gently with iVF NS @ 125cc/hr Recommendations: -EGD and colonoscopy to evaluate esophageal dysphagia and what is believed to be chronic blood loss anemia possibly secondary to malignancy, angiodysplasia, peptic disease, GAVE, Pramod's erosions. He was explained alternatives, risk, benefits including outstanding bleeding, infection, sepsis, perforation, need emergent urgent he will have an ASA of 3. Charges/Coding Visit Charges Inpatient E&M: 87975 Subs Hosp L3
--- NOTE | 2023-07-21 14:42 | PN.HOSP_ITS ---
Reason for Visit Reason for Visit: Diagnoses Anemia, unspecified (07/19/23) Gastrointestinal hemorrhage, unspecified (07/19/23) Dysphagia, unspecified (07/19/23) Weakness (07/19/23) Objective Data Objective Data Vital Signs: Vital Signs Temp Pulse Resp BP Pulse Ox O2 Del Method 98.2 F 79 16 149/75 H 97 Room Air 07/21/23 11:00 07/21/23 11:00 07/21/23 11:00 07/21/23 11:00 07/21/23 11:00 07/21/23 11:00 Oxygen Delivery Method Room Air Weight: 212 lb 15.465 oz Body Mass Index (BMI) 30.5 Intake & Output: Intake and Output for Last 24 Hours 07/19/23 07/20/23 07/22/23 23:59 23:59 00:59 Intake Total 175.58 / 175.58 1021.34 / 1621.34 937.08 / 937.08 Output Total 500 / 500 1950 / 1950 325 / 325 Balance -324.42 / -324.42 -928.66 / -328.66 612.08 / 612.08 Lab / Micro Data 07/21/23 05:31 07/21/23 05:31 Labs: Laboratory Results - last 24 hr 07/19/23 22:45: Urine Color Yellow, Urine Clarity Clear, Urine pH 7.0, Ur Specific [place] 1.010, Urine Protein 15 H, Urine Glucose (UA) Normal, Urine Ketones 150 A*, Urine Occult Blood 10 H, Urine Nitrite Negative, Urine Bilirubin Negative, Urine Urobilinogen 1 H, Ur Leukocyte Esterase 500 H, Urine RBC 0 SEEN, Urine WBC 5-10 SEEN, Ur Squamous Epith Cells 0 SEEN, Urine Bacteria RARE, Urine Mucus 0 SEEN 07/20/23 15:51: Hgb 8.4 L, Hct 25.8 L 07/21/23 05:31: WBC 7.4, RBC 2.98 L, Hgb 8.2 L, Hct 25.1 L, MCV 84.2, MCH 27.5, MCHC 32.7, RDW Std Deviation 46.5 H, RDW Coeff of [place]ena 15.3 H, Plt Count 246, MPV 8.3, Immature Gran % (Auto) 0.500, Neut % (Auto) 74.4 H, Lymph % (Auto) 15.5 L, [place] % (Auto) 6.2, Eos % (Auto) 3.0, Baso % (Auto) 0.4, Absolute Neuts (auto) 5.5, Absolute Lymphs (auto) 1.15, Nucleated RBC % 0.5, Sodium 136, Potassium 3.5, Chloride 105, Carbon Dioxide 24.0, Anion Gap 7, BUN 16, Creatinine 0.87, Estim Creat Clear Calc 82.91, Est GFR (MDRD) Af Amer 109, Est GFR (MDRD) Non-Af 90, BUN/Creatinine Ratio 18.3, Glucose 78, Calcium 7.6 L Micro: Microbiology 07/19/23 13:40 Stool Stool Occult Blood (ROSEMARY) - Final Occult Blood Positive Physical Exam Narrative Seen and examined Patient looks very tired sleepy and takes a long time to narrate history with slow speech. Chronic dyspnea on exertion due to severe anemia. Patient states he gets darker stool attributed to the Pepto-Bismol General: Awake, mild lethargic oriented x3, Cooperative. Very pale looking fatigue HEENT: Atraumatic, PERRLA, EOMI, Normocephalic Oral: Oral mucosa moist. No Gingival or Mucosal Lesions/ Ulcerations Neck: Supple, No JVD, Negative Carotid Bruits Chest wall/Lungs: Air entry diminished in bilateral lung bases. No crepitation/rhonchi Cardiovascular: Regular rate, Regular Rhythm, Normal S1, Normal S2, No M/G/R Abdomen: Bowel Sounds Present, Soft, Non Tender, Non-Distended : No dysuria. No renal angle tenderness. No suprapubic tenderness. Extremities: Mild pitting edema, Capillary Refill Less than 3 Seconds Skin: No rashes, No breakdown Musculoskeletal: No Tenderness to Palpation of Joints or Extremities. ROM intact. Neurological: Cranial nerves II-XII grossly intact, DTR 2+/4. No acute focal neurological deficit. Psych/Mental Status: Flat affect. Assessment & Plan Assessment/Plan (1) Anemia: (2) Weakness: PLAN: Plan This is 78-year-old gentleman who was brought by EMS for generalized weakness for about 2 weeks along with confusion. He has not gone outside for grocery or laundry because of tiredness/weakness. Constipation for past 2 weeks, but had last BM yesterday. Intermittent upper abdominal pain for past 2 weeks. No previous abdominal surgeries. Has been losing weight for past 2 months. Other chronic issues include bilateral leg pain. No fever chills nausea vomiting chest pain shortness of breath. #Acute on chronic anemia: Patient is admitted to PCU. Admitted with hemoglobin 3.6. Iron profile consistent with iron versus anemia with iron saturation 3.6%, low ferritin 4, iron 12 TIBC normal. GI is consulted. Hemoglobin was 6.9 after 3 units of transfusion therefore 1 more unit is ordered. On IV PPI drip. Chest x-ray initially reviewed symptoms gas shadow in the chest area consistent with h iatus hernia. Cardiomegaly. GI is consulted. PT and OT. 07/20: GI note reviewed. Plan for EGD and colonoscopy tomorrow. Vitals in normal range. Hemoglobin 8.2. Or for further transfusion. Colon prep starting today #Elevated blood pressure: * Not a known hypertensive. * Blood pressure has been in the 140s and 150s systolic though was done in the 120 systolic earlier today. BP 158/87. * Started on lisinopril 10 mg daily. The patient will need home or ambulatory BP monitoring to diagnose hypertension. DVT prophylaxis: SCDs. No anticoagulation due to anemia COde status: full code * Patient counseled extensively about different types of CODE STATUS including full code, DNR CCA and DNR CCA. Patient elects to be full code. He doesnt have any close relatives he would want to be his POA. He does have two cousins but he is not sure he would want either of them to be his POA. He wants to think about it some more and will let the hospitalist team know tomorrow. Charges/Coding Visit Charges Inpatient E&M: 86456 Subs Hosp L2
[2023-07-21 17:00] VITALS: BP 139/88; PULSE 74; RESP 16; TEMP 36.7; O2SAT 97
[2023-07-21] MEDS: Lactated Ringers 1,000 ML 50 ML IV (17:25)
[2023-07-21] MEDS: Bisacodyl 5 MG Tablet 10 MG PO (17:28)
[2023-07-21] MEDS: Polyethylene Glycol 3350 BOWEL PREP PO (18:32)
[2023-07-21 22:00] VITALS: BP 158/88; PULSE 84; RESP 18; TEMP 36.6; O2SAT 100
[2023-07-22] VITALS (11 sets, daily range): BP systolic 97–154; BP diastolic 60–97; PULSE 75–98; RESP 16–18; TEMP 36.2–36.8; O2SAT 97–100; BMI 30.5
[2023-07-22 05:06] LABS: Absolute Neutrophil Count 5.6 X10^3/uL (2.0-7.7); Basophil# 0.03 X10^3/uL; Basophil% 0.4 % (0-1); Eosinophil# 0.21 X10^3/uL; Eosinophils% 2.9 % (0-5); Hematocrit 26.5 % (40-54); Hemoglobin 8.6 g/dL (13.0-16.5); Lymphocyte % 12.5 % (19-41); Mean Corp Hgb Conc 32.5 g/dL (32-36); Mean Corpuscular Volume 86.3 fL (80-94); Mean Platelet Vol. 8.7 fl (6.2-12.0); Monocyte# 0.45 X10^3/uL; Monocyte% 6.3 % (0-10); NRBC Flagged by Analyzer 0 % (0-5); Neutrophil # 5.55 X10^3/uL (2.7-7.7); Neutrophil % 77.3 % (47-70); Platelet Count 241 K/mm3 (150-450); RBC Distribution Width CV 15.4 % (11.6-14.6); RBC Distribution Width SD 46.6 fl (35.1-43.9); Red Blood Count 3.07 M/mm3 (4.6-6.2); White Blood Count 7.2 K/mm3 (4.4-11.0)
[2023-07-22 05:26] LABS: Anion Gap 6 (5-15); BUN 10 mg/dL (7-18); BUN/Creat Ratio 12.1 RATIO (10-20); Calcium,Total 7.8 mg/dL (8.5-10.1); Chloride 107 mmol/L (98-107); Creatinine, Serum 0.83 mg/dL (0.70-1.30); EST Glomerular Filtration Rate 96 mL/min (>60); Est Glom Filt Rate - Afr Amer 116 mL/min (>60); Estimated Creatinine Clearance 86.91 ml/min; Glucose 93 mg/dL (74-106); Potassium 3.9 mmol/L (3.5-5.1); Sodium Level 139 mmol/L (136-145)
[2023-07-22] MEDS: Pantoprazole Sodium 40 MG in 0.9% Normal Saline (100mL MB+) 100 ML 330 MG IV ×2 (08:45→19:55)
[2023-07-22] MEDS: Lactated Ringers 1,000 ML 15 ML IV (11:48)
--- NOTE | 2023-07-22 12:50 | OP.CCLET_ITS ---
07/22/2023 No Primary Care Physician Re : Upper GI endoscopy procedure for Raymond Coronado Dear Care Physician This procedure was performed on Saturday, July 22, 2023. My impressions and recommendations are as follows: Impressions : - Normal esophagus. - Medium-sized hiatal hernia. - Oozing duodenal ulcer with a visible vessel. Injected. Treated with a heater probe. Biopsied. - Outpatient placement of duodenal stent over the duodenal ulcer to allow for healing. - Protonix 40 mg twice a day Recommendations : - Await pathology results. - Repeat upper endoscopy in 2 years for surveillance. - Continue present medications. - No aspirin, ibuprofen, naproxen, or other non-steroidal anti-inflammatory drugs for 12 weeks. My findings are described in the full procedure note, which is enclosed. If I can be of further assistance, please feel free to contact me at . Sincerely, Sathya Friend, 07/22/2023 12:49:51 PM This report has been signed electronically.
--- NOTE | 2023-07-22 12:50 | OP.EGD_ITS ---
Patient Name: Raymond Coronado Procedure Date: 07/22/2023 12:03 PM Date of : 1945 Age: 78 Procedure: Upper GI endoscopy Indications: Iron deficiency anemia, Melena Providers: Sathya Patiño DO Medicines: Monitored Anesthesia Care Patient Profile: This is a 78 year old male. Refer to note in patient chart for documentation of history and physical. Patient has symptoms of acute epigastric abdominal pain. Complications: No immediate complications. Procedure: Pre-Anesthesia Assessment: - Prior to the procedure, a History and Physical was performed, and patient medications and allergies were reviewed. The patient is competent. The risks and benefits of the procedure and the sedation options and risks were discussed with the patient. All questions were answered and informed consent was obtained. Patient identification and proposed procedure were verified by the physician in the pre-procedure area. Mental Status Examination: alert and oriented. Airway Examination: normal oropharyngeal airway and neck mobility. Respiratory Examination: clear to auscultation. CV Examination: normal. Prophylactic Antibiotics: The patient does not require prophylactic antibiotics. Prior Anticoagulants: The patient has taken no anticoagulant or antiplatelet agents. ASA Grade Assessment: IV - A patient with severe systemic disease that is a constant threat to life. After reviewing the risks and benefits, the patient was deemed in satisfactory condition to undergo the procedure. The anesthesia plan was to use monitored anesthesia care (MAC). Immediately prior to administration of medications, the patient was re-assessed for adequacy to receive sedatives. The heart rate, respiratory rate, oxygen saturations, blood pressure, adequacy of pulmonary ventilation, and response to care were monitored throughout the procedure. The physical status of the patient was re-assessed after the procedure. After obtaining informed consent, the endoscope was passed under direct vision. Throughout the procedure, the patient's blood pressure, pulse, and oxygen saturations were monitored continuously. The Colonoscope was introduced through the mouth, and advanced to the second part of duodenum. The upper GI endoscopy was accomplished without difficulty. The patient tolerated the procedure well. Scope In: 12:20:26 PM Scope Out: 12:25:16 PM Total Procedure Duration Time 0 hours 4 minutes 50 seconds Findings: The examined esophagus was normal. A medium-sized hiatal hernia was present. No other significant abnormalities were identified in a careful examination of the stomach. One oozing cratered duodenal ulcer with a visible vessel was found in the first portion of the duodenum. The lesion was 30 mm in largest dimension. Area was successfully injected with 10 mL of a 0.1 mg/mL solution of epinephrine for drug delivery. Coagulation for hemostasis using heater probe was successful. Biopsies were taken with a cold forceps for histology. Verification of patient identification for the specimen was done. Impression: - Normal esophagus. - Medium-sized hiatal hernia. - Oozing duodenal ulcer with a visible vessel. Injected. Treated with a heater probe. Biopsied. - Outpatient placement of duodenal stent over the duodenal ulcer to allow for healing. - Protonix 40 mg twice a day Recommendation: - Await pathology results. - Repeat upper endoscopy in 2 years for surveillance. - Continue present medications. - No aspirin, ibuprofen, naproxen, or other non-steroidal anti-inflammatory drugs for 12 weeks. Procedure Code(s): --- Professional --- 21175, 59, Esophagogastroduodenoscopy, flexible, transoral; with control of bleeding, any method 62864, Esophagogastroduodenoscopy, flexible, transoral; with biopsy, single or multiple 80450, 59,51, Esophagogastroduodenoscopy, flexible, transoral; with directed submucosal injection(s), any substance CPT copyright 2021 [employer]. All rights reserved. The codes documented in this report are preliminary and upon clinic director review may be revised to meet current compliance requirements. Sathya Patiño DO 07/22/2023 12:49:51 PM This report has been signed electronically. Number of Addenda: 0 Note Initiated On: 07/22/2023 12:03 PM
--- NOTE | 2023-07-22 12:52 | OP.CCLET_ITS ---
07/22/2023 No Primary Care Physician Re : Colonoscopy procedure for Raymond Coronado Dear Care Physician This procedure was performed on Saturday, July 22, 2023. My impressions and recommendations are as follows: Impressions : - Preparation of the colon was fair. - Diverticulosis in the recto-sigmoid colon, in the sigmoid colon and in the descending colon. - One 5 mm polyp in the transverse colon, removed with a cold snare. Resected and retrieved. - Stool in the recto-sigmoid colon, in the sigmoid colon and in the cecum. - The examination was otherwise normal on direct and retroflexion views. Recommendations : - Discharge patient to home. - Resume previous diet. - Continue present medications. - Await pathology results. - Repeat colonoscopy in 1 year for surveillance. My findings are described in the full procedure note, which is enclosed. If I can be of further assistance, please feel free to contact me at . Sincerely, Sathya Patiño, 07/22/2023 12:52:13 PM This report has been signed electronically.
--- NOTE | 2023-07-22 12:52 | OP.COLON_ITS ---
Patient Name: Raymond Coronado Procedure Date: 07/22/2023 12:25 PM Date of : 1945 Age: 78 Procedure: Colonoscopy Indications: Iron deficiency anemia Providers: Sathya Patiño DO Medicines: Monitored Anesthesia Care Patient Profile: This is a 78 year old male. Refer to note in patient chart for documentation of history and physical. Patient has symptoms of acute epigastric abdominal pain. Last Colonoscopy: none. The patient's first colonoscopy is today. Complications: No immediate complications. Procedure: Pre-Anesthesia Assessment: - Prior to the procedure, a History and Physical was performed, and patient medications and allergies were reviewed. The patient is competent. The risks and benefits of the procedure and the sedation options and risks were discussed with the patient. All questions were answered and informed consent was obtained. Patient identification and proposed procedure were verified by the physician in the pre-procedure area. Mental Status Examination: alert and oriented. Airway Examination: normal oropharyngeal airway and neck mobility. Respiratory Examination: clear to auscultation. CV Examination: normal. Prophylactic Antibiotics: The patient does not require prophylactic antibiotics. Prior Anticoagulants: The patient has taken no anticoagulant or antiplatelet agents. ASA Grade Assessment: IV - A patient with severe systemic disease that is a constant threat to life. After reviewing the risks and benefits, the patient was deemed in satisfactory condition to undergo the procedure. The anesthesia plan was to use monitored anesthesia care (MAC). Immediately prior to administration of medications, the patient was re-assessed for adequacy to receive sedatives. The heart rate, respiratory rate, oxygen saturations, blood pressure, adequacy of pulmonary ventilation, and response to care were monitored throughout the procedure. The physical status of the patient was re-assessed after the procedure. After I obtained informed consent, the scope was passed under direct vision. Throughout the procedure, the patient's blood pressure, pulse, and oxygen saturations were monitored continuously. The Colonoscope was introduced through the anus and advanced to the cecum, identified by the appendiceal orifice, IC valve and transillumination. The colonoscopy was performed without difficulty. The patient tolerated the procedure well. The quality of the bowel preparation was fair. Scope In: 12:28:31 PM Scope Withdrawal Time 0 hours 9 minutes 5 seconds Scope Out: 12:43:03 PM Total Procedure Duration Time 0 hours 14 minutes 32 seconds Findings: The perianal and digital rectal examinations were normal. A few small and large-mouthed diverticula were found in the recto-sigmoid colon, sigmoid colon and descending colon. A 5 mm polyp was found in the transverse colon. The polyp was flat. The polyp was removed with a cold snare. Resection and retrieval were complete. Verification of patient identification for the specimen was done. Estimated blood loss was minimal. Stool was found in the recto-sigmoid colon, in the sigmoid colon and in the cecum. The exam was otherwise without abnormality on direct and retroflexion views. Impression: - Preparation of the colon was fair. - Diverticulosis in the recto-sigmoid colon, in the sigmoid colon and in the descending colon. - One 5 mm polyp in the transverse colon, removed with a cold snare. Resected and retrieved. - Stool in the recto-sigmoid colon, in the sigmoid colon and in the cecum. - The examination was otherwise normal on direct and retroflexion views. Recommendation: - Discharge patient to home. - Resume previous diet. - Continue present medications. - Await pathology results. - Repeat colonoscopy in 1 year for surveillance. Procedure Code(s): --- Professional --- 61250, Colonoscopy, flexible; with removal of tumor(s), polyp(s), or other lesion(s) by snare technique CPT copyright 2021 [employer]. All rights reserved. The codes documented in this report are preliminary and upon boat carpenter mechanic review may be revised to meet current compliance requirements. Sathya Patiño DO 07/22/2023 12:52:13 PM This report has been signed electronically. Number of Addenda: 0 Note Initiated On: 07/22/2023 12:25 PM
--- NOTE | 2023-07-22 13:00 | COLBX_PTH ---
PATIENT: PAYTON GILL LOC: [facility] U#:[id number] AGE/SX: 78/M ROOM: [facility] RE07/19/[address]: Dr. Saman Anderson MD : 1945 BED: 1 DIS: 07/24/2023 SPEC #: [id number] RECD: 07/23/23 08:01 STATUS: GLENN CLINTON #: [id number] [place]: 07/22/23 13:[address]: Saman Anderson DEPT: SURGICAL PATHOLOGY RECD BY: Elsie Matute ENTERED: 07/23/23 08:01 SP TYPE: COLON BX OTHR DR: Dr. Meseret Butts MD No Primary Care Phys Tissues: A - Duodenum, NOS B - Transverse colon Procedures: Surgery Specimen Level IV HEADER OPERATION: Colonoscopy, EDG with biopsy PRE-OP DIAGNOSIS: Anemia, Weakness TISSUE SUBMITTED: A- Duodenal ulcer biopsy, B- Transverse polyp biopsy MICROSCOPIC DIAGNOSIS A. Duodenal ulcer, biopsy; Mucosal ulceration with associated acute inflammation. Gastric metaplasia with associated mild chronic inflammation. B. Transverse colon polyp, biopsy: Tubular adenoma. AM/mr 07/24/23 MICROSCOPIC DESCRIPTION Slides are reviewed. GROSS DESCRIPTION A - Received in fixative is one container labeled with the patient's name and designated duodenal ulcer biopsy. The specimen consists of multiple irregular fragments of light webb soft tissue that in aggregate measure 0.8 x 0.4 x 0.1 cm. The specimen is totally submitted in one cassette. B - Received in fixative is one container labeled with the patient's name and designated transverse polyp biopsy. The specimen consists of one irregular fragment of light webb soft tissue that measures 0.3 x 0.2 x 0.1 cm. The specimen is totally submitted in one cassette. / VLEIA:navjot 07/23/2023 TC:2 CPT: 79731 x2
--- NOTE | 2023-07-22 14:41 | PN.HOSP_ITS ---
Reason for Visit Reason for Visit: Diagnoses Anemia, unspecified (07/19/23) Gastrointestinal hemorrhage, unspecified (07/19/23) Dysphagia, unspecified (07/19/23) Weakness (07/19/23) Objective Data Objective Data Vital Signs: Vital Signs Temp Pulse Resp BP Pulse Ox O2 Del Method O2 Flow Rate 97.8 F 79 18 147/79 H 100 Room Air 2 07/22/23 13:29 07/22/23 13:29 07/22/23 13:29 07/22/23 13:29 07/22/23 13:29 07/22/23 13:29 07/22/23 12:50 Oxygen Flow Rate (L/min) 2 Oxygen Delivery Method Room Air Weight: 212 lb 15.465 oz Body Mass Index (BMI) 30.5 Intake & Output: Intake and Output for Last 24 Hours 07/20/23 07/21/23 07/22/23 22:59 23:59 23:59 Intake Total 830.25 / 830.25 Output Total Balance 830.25 / 830.25 Lab / Micro Data 07/22/23 04:25 07/22/23 04:25 Labs: Laboratory Results - last 24 hr 07/19/23 12:20: Crossmatch See Detail 07/22/23 04:25: WBC 7.2, RBC 3.07 L, Hgb 8.6 L, Hct 26.5 L, MCV 86.3, MCH 28.0, MCHC 32.5, RDW Std Deviation 46.6 H, RDW Coeff of [place] 15.4 H, Plt Count 241, MPV 8.7, Immature Gran % (Auto) 0.600, Neut % (Auto) 77.3 H, Lymph % (Auto) 12.5 L, [place] % (Auto) 6.3, Eos % (Auto) 2.9, Baso % (Auto) 0.4, Absolute Neuts (auto) 5.6, Absolute Lymphs (auto) 0.90, Nucleated RBC % 0, Sodium 139, Potassium 3.9, Chloride 107, Carbon Dioxide 26.0, Anion Gap 6, BUN 10, Creatinine 0.83, Estim Creat Clear Calc 86.91, Est GFR (MDRD) Af Amer 116, Est GFR (MDRD) Non-Af 96, BUN/Creatinine Ratio 12.1, Glucose 93, Calcium 7.8 L Micro: Microbiology 07/19/23 13:40 Stool Stool Occult Blood (ROSEMARY) - Final Occult Blood Positive Physical Exam Narrative Seen and examined No acute change. patient is awake. He feels more stronger and energetic. Chronic dyspnea on exertion due to severe anemia. Patient states he gets darker stool attributed to the Pepto-Bismol Physical exam General: Awake, mild lethargic oriented x3, Cooperative. Very pale looking fatigue HEENT: Atraumatic, PERRLA, EOMI, Normocephalic Oral: Oral mucosa moist. No Gingival or Mucosal Lesions/ Ulcerations Neck: Supple, No JVD, Negative Carotid Bruits Chest wall/Lungs: Air entry diminished in bilateral lung bases. No crepitation/rhonchi Cardiovascular: Regular rate, Regular Rhythm, Normal S1, Normal S2, No M/G/R Abdomen: Bowel Sounds Present, Soft, Non Tender, Non-Distended : No dysuria. No renal angle tenderness. No suprapubic tenderness. Extremities: Mild pitting edema, Capillary Refill Less than 3 Seconds Skin: No rashes, No breakdown Musculoskeletal: No Tenderness to Palpation of Joints or Extremities. ROM intact. Muscle strength decreased 4+/5 at major joints. Neurological: Cranial nerves II-XII grossly intact, DTR 2+/4. No acute focal neurological deficit. Psych/Mental Status: Flat affect. Assessment & Plan Assessment/Plan (1) Anemia: (2) Weakness: PLAN: Plan This is 78-year-old gentleman who was brought by EMS for generalized weakness for about 2 weeks along with confusion. He has not gone outside for grocery or laundry because of tiredness/weakness. Constipation for past 2 weeks, but had last BM yesterday. Intermittent upper abdominal pain for past 2 weeks. No previous abdominal surgeries. Has been losing weight for past 2 months. Other chronic issues include bilateral leg pain. No fever chills nausea vomiting chest pain shortness of breath. #Acute on chronic anemia: Patient is admitted to PCU. Admitted with hemoglobin 3.6. Iron profile consistent with iron versus anemia with iron saturation 3.6%, low ferritin 4, iron 12 TIBC normal. GI is consulted. Hemoglobin was 6.9 after 3 units of transfusion therefore 1 more unit is ordered. On IV PPI drip. Chest x-ray initially reviewed symptoms gas shadow in the chest area consistent with hiatus hernia. Cardiomegaly. GI is consulted. PT and OT. 07/20: GI note reviewed. Plan for EGD and colonoscopy tomorrow. Vitals in normal range. Hemoglobin 8.2. Or for further transfusion. Colon prep starting today 07/21: Patient had EGD and colonoscopy as described below. Continue PPI. Impressions : - Normal esophagus. - Medium-sized hiatal hernia. - Oozing duodenal ulcer with a visible vessel. Injected. Treated with a heater probe. Biopsied. - Outpatient placement of duodenal stent over the duodenal ulcer to allow for healing. - Protonix 40 mg twice a day Recommendations : - Await pathology results. - Repeat upper endoscopy in 2 years for surveillance. - Continue present medications. - No aspirin, ibuprofen, naproxen, or other non-steroidal anti-inflammatory drugs for 12 weeks. Impressions : - Preparation of the colon was fair. - Diverticulosis in the recto-sigmoid colon, in the sigmoid colon and in the descending colon. - One 5 mm polyp in the transverse colon, removed with a cold snare. Resected and retrieved. - Stool in the recto-sigmoid colon, in the sigmoid colon and in the cecum. - The examination was otherwise normal on direct and retroflexion views. Recommendations : No NSAIDs.- Await pathology results. - Repeat colonoscopy in 1 year for surveillance. #Elevated blood pressure: * Not a known hypertensive. * Blood pressure has been in the 140s and 150s systolic though was done in the 120 systolic earlier today. BP 158/87. * Started on lisinopril 10 mg daily. The patient will need home or ambulatory BP monitoring to diagnose hypertension. DVT prophyl07/21: Blood pressure is better controlled 147/79.axis: SCDs. No anticoagulation due to anemia COde status: full code * Patient counseled extensively about different types of CODE STATUS including full code, DNR CCA and DNR CCA. Patient elects to be full code. He doesnt have any close relatives he would want to be his POA. He does have two cousins but he is not sure he would want either of them to be his POA. Charges/Coding Visit Charges Inpatient E&M: 95398 Subs Hosp L2
[2023-07-22] MEDS: 0.9% Saline Lock 10 ML Syringe IV (19:55)
[2023-07-23 03:55] VITALS: BP 134/68; PULSE 87; RESP 18; TEMP 36.6; O2SAT 99
[2023-07-23 07:56] LABS: Pathologist Review Reviewed
[2023-07-23 07:57] LABS: Pathologist Review Reviewed
[2023-07-23 09:10] VITALS: BP 154/73; PULSE 87; RESP 18; TEMP 36.7; O2SAT 97
[2023-07-23] MEDS: Pantoprazole Sodium 40 MG in 0.9% Normal Saline (100mL MB+) 100 ML 330 MG IV ×2 (09:10→20:11)
[2023-07-23] MEDS: 0.9% Saline Lock 10 ML Syringe IV ×2 (09:11→20:12)
[2023-07-23] MEDS: Lisinopril 10 MG Tablet PO (09:11)
[2023-07-23 15:05] VITALS: BP 113/60; PULSE 90; RESP 18; TEMP 36.9; O2SAT 98
--- NOTE | 2023-07-23 16:05 | CASEMGMT ---
YNEY FULTON in to discuss discharge planning with patient and cousin. RN CM reviewed progress with therapy. Patient and cousin Carmen agreeable to SNF for additional therapy. SNF list provided to patient and prefers TCU. YENY FULTON asked patient and family to review list for additional preferences. YENY FULTON updated SW. CM will continue to follow this patient and plan for a safe discharge.
--- NOTE | 2023-07-23 16:15 | CASEMGMT ---
SW made a referral to TCU as per RN CM patient is interested in going to TCU. Karena Eng PARTS SALES MANAGER [employer]
--- NOTE | 2023-07-23 16:21 | PN.GI_ITS ---
Subjective Subjective Patient is doing very well. He is tolerating a diet and his hemoglobin seems to be holding stable. He denies any abdominal pain. He denies any black stools or bright red blood per rectum Objective Data Objective Data Vital Signs: Vital Signs Temp Pulse Resp BP Pulse Ox O2 Del Method O2 Flow Rate 98.4 F 90 18 113/60 98 Room Air 2 07/23/23 15:05 07/23/23 15:05 07/23/23 15:05 07/23/23 15:05 07/23/23 15:05 07/23/23 15:05 07/22/23 12:50 Oxygen Flow Rate (L/min) 2 Oxygen Delivery Method Room Air Weight: 212 lb 15.465 oz Body Mass Index (BMI) 30.5 Intake & Output: Intake and Output for Last 24 Hours 07/21/23 07/22/23 07/23/23 23:59 23:59 23:59 Intake Total 1390.25 / 1510.25 710 / 710 Output Total 250 / 550 1750 / 1750 Balance 1140.25 / 960.25 -1040 / -1040 Lab / Micro Data 07/22/23 04:25 07/22/23 04:25 Labs: Laboratory Results - last 24 hr 07/19/23 12:20: Diff Path Review Reviewed 07/19/23 20:30: Diff Path Review Reviewed Micro: Microbiology 07/19/23 13:40 Stool Stool Occult Blood (ROSEMARY) - Final Occult Blood Positive Physical Exam Narrative Seen and examined No acute change. patient is awake. He feels more stronger and energetic. Chronic dyspnea on exertion due to severe anemia. Patient states he gets darker stool attributed to the Pepto-Bismol Physical exam General: Awake, mild lethargic oriented x3, Cooperative. Very pale looking fatigue HEENT: Atraumatic, PERRLA, EOMI, Normocephalic Oral: Oral mucosa moist. No Gingival or Mucosal Lesions/ Ulcerations Neck: Supple, No JVD, Negative Carotid Bruits Chest wall/Lungs: Air entry diminished in bilateral lung bases. No crepitation/rhonchi Cardiovascular: Regular rate, Regular Rhythm, Normal S1, Normal S2, No M/G/R Abdomen: Bowel Sounds Present, Soft, Non Tender, Non-Distended : No dysuria. No renal angle tenderness. No suprapubic tenderness. Extremities: Mild pitting edema, Capillary Refill Less than 3 Seconds Skin: No rashes, No breakdown Musculoskeletal: No Tenderness to Palpation of Joints or Extremities. ROM intact. Muscle strength decreased 4+/5 at major joints. Neurological: Cranial nerves II-XII grossly intact, DTR 2+/4. No acute focal neurological deficit. Psych/Mental Status: Flat affect. Assessment & Plan Assessment/Plan (1) Acute GI bleeding: (2) Anemia: (3) Dysphagia: PLAN: Plan #Acute on chronic anemia * etiology unclear, may be due to an underlying malignancy in light of the dark stools and unexplained weight loss * Hb is 8.4 * admit to PCU * check iron profile and ferritin * keep NPO * EGD and colonoscopy * transfuse with 2 units of PRBCs * IV pantoprazole drip * hydrate gently with iVF NS @ 125cc/hr Recommendations: -EGD and colonoscopy to evaluate esophageal dysphagia and what is believed to be chronic blood loss anemia possibly secondary to malignancy, angiodysplasia, peptic disease, GAVE, Pramod's erosions. He was explained alternatives, risk, benefits including outstanding bleeding, infection, sepsis, perforation, need emergent urgent he will have an ASA of 3. 3/05/05-patient underwent an EGD and colonoscopy yesterday. His EGD showed a large 3 to 4 cm duodenal bulb and first portion of the duodenum ulcer with bleeding stigmata at that was treated endoscopically. Biopsies were taken also to rule out malignancy. This looks like a medication induced ulcer. Hopefully the hemoglobin will continue to go up. He may need a duodenal stent to bridge the defect so there is a decreased amount of acid and bile hindering the healing of the ulcer. This can be addressed as an outpatient. Continue PPI therapy and sulcal fate therapy. There was no sign of GI bleeding in his colon. Prep was not good but there was no active bleeding seen as there was in the duodenum. Charges/Coding Visit Charges Inpatient E&M: 13802 Subs Hosp L3
--- NOTE | 2023-07-23 16:48 | PN.HOSP_ITS ---
Reason for Visit Reason for Visit: Diagnoses Anemia, unspecified (07/19/23) Gastrointestinal hemorrhage, unspecified (07/19/23) Dysphagia, unspecified (07/19/23) Weakness (07/19/23) Objective Data Objective Data Vital Signs: Vital Signs Temp Pulse Resp BP Pulse Ox O2 Del Method O2 Flow Rate 98.4 F 90 18 113/60 98 Room Air 2 07/23/23 15:05 07/23/23 15:05 07/23/23 15:05 07/23/23 15:05 07/23/23 15:05 07/23/23 15:05 07/22/23 12:50 Oxygen Flow Rate (L/min) 2 Oxygen Delivery Method Room Air Weight: 212 lb 15.465 oz Body Mass Index (BMI) 30.5 Intake & Output: Intake and Output for Last 24 Hours 07/21/23 07/22/23 07/23/23 23:59 23:59 23:59 Intake Total 1390.25 / 1510.25 710 / 710 Output Total 250 / 550 1750 / 1750 Balance 1140.25 / 960.25 -1040 / -1040 Lab / Micro Data 07/22/23 04:25 07/22/23 04:25 Labs: Laboratory Results - last 24 hr 07/19/23 12:20: Diff Path Review Reviewed 07/19/23 20:30: Diff Path Review Reviewed Micro: Microbiology 07/19/23 13:40 Stool Stool Occult Blood ([facility]) - Final Occult Blood Positive Physical Exam Narrative Seen and examined No acute change. patient is awake. No abdominal pain. Patient had bowel movement. Chronic dyspnea on exertion due to severe anemia. Difficulty in walking and balance. Physical exam General: Awake, mild lethargic oriented x3, Cooperative. Very pale looking fatigue HEENT: Atraumatic, PERRLA, EOMI, Normocephalic Oral: Oral mucosa moist. No Gingival or Mucosal Lesions/ Ulcerations Neck: Supple, No JVD, Negative Carotid Bruits Chest wall/Lungs: Air entry diminished in bilateral lung bases. No crepitation/rhonchi Cardiovascular: Regular rate, Regular Rhythm, Normal S1, Normal S2, No M/G/R Abdomen: Bowel Sounds Present, Soft, Non Tender, Non-Distended : No dysuria. No renal angle tenderness. No suprapubic tenderness. Extremities: Mild pitting edema, Capillary Refill Less than 3 Seconds Skin: No rashes, No breakdown Musculoskeletal: No Tenderness to Palpation of Joints or Extremities. Muscle strength decreased 4+/5 at major joints. Neurological: Cranial nerves II-XII grossly intact, DTR 2+/4. No acute focal neurological deficit. Psych/Mental Status: Flat affect. Assessment & Plan Assessment/Plan (1) Anemia: (2) Weakness: PLAN: Plan This is 78-year-old gentleman who was brought by EMS for generalized weakness for about 2 weeks along with confusion. He has not gone outside for grocery or laundry because of tiredness/weakness. Constipation for past 2 weeks, but had last BM yesterday. Intermittent upper abdominal pain for past 2 weeks. No previous abdominal surgeries. Has been losing weight for past 2 months. Other chronic issues include bilateral leg pain. No fever chills nausea vomiting chest pain shortness of breath. #Acute on chronic anemia: Patient is admitted to PCU. Admitted with hemoglobin 3.6. Iron profile consistent with iron versus anemia with iron saturation 3.6%, low ferritin 4, iron 12 TIBC normal. GI is consulted. Hemoglobin was 6.9 after 3 units of transfusion therefore 1 more unit is ordered. On IV PPI drip. Chest x-ray initially reviewed symptoms gas shadow in the chest area consistent with hiatus hernia. Cardiomegaly. GI is consulted. PT and OT. 07/20: GI note reviewed. Plan for EGD and colonoscopy tomorrow. Vitals in normal range. Hemoglobin 8.2. Or for further transfusion. Colon prep starting today 07/21: Patient had EGD and colonoscopy as described below. Continue PPI. Impressions : - Normal esophagus. - Medium-sized hiatal hernia. - Oozing duodenal ulcer with a visible vessel. Injected. Treated with a heater probe. Biopsied. - Outpatient placement of duodenal stent over the duodenal ulcer to allow for healing. - Protonix 40 mg twice a day Recommendations : - Await pathology results. - Repeat upper endoscopy in 2 years for surveillance. - Continue present medications. - No aspirin, ibuprofen, naproxen, or other non-steroidal anti-inflammatory drugs for 12 weeks. Impressions : - Preparation of the colon was fair. - Diverticulosis in the recto-sigmoid colon, in the sigmoid colon and in the descending colon. - One 5 mm polyp in the transverse colon, removed with a cold snare. Resected and retrieved. - Stool in the recto-sigmoid colon, in the sigmoid colon and in the cecum. - The examination was otherwise normal on direct and retroflexion views. Recommendations : No NSAIDs.- Await pathology results. - Repeat colonoscopy in 1 year for surveillance. 07/22: Patient seen and examined. Clinically he is ready for walk but functionally is not strong to walk and needs assistance therefore need SNF. PT and OT on board. #Elevated blood pressure: * Not a known hypertensive. * Blood pressure has been in the 140s and 150s systolic though was done in the 120 systolic earlier today. BP 158/87. * Started on lisinopril 10 mg daily. The patient will need home or ambulatory BP monitoring to diagnose hypertension. DVT prophyl07/21: Blood pressure is better controlled 147/79.axis: SCDs. No anticoagulation due to anemia COde status: full code * Patient counseled extensively about different types of CODE STATUS including full code, DNR CCA and DNR CCA. Patient elects to be full code. He doesnt have any close relatives he would want to be his POA. He does have two cousins but he is not sure he would want either of them to be his POA. Charges/Coding Visit Charges Inpatient E&M: 91668 Subs Hosp L2
[2023-07-23] MEDS: Ensure Plus High Protein 120 ML LIQUID PO (17:32)
[2023-07-23 21:05] VITALS: BP 131/69; PULSE 90; RESP 20; TEMP 36.1; O2SAT 98
[2023-07-24 03:05] VITALS: BP 137/71; PULSE 83; RESP 16; TEMP 36.1; O2SAT 96
[2023-07-24 08:46] VITALS: BP 136/88; BP 144/73; BP 144/83; PULSE 103; PULSE 112; PULSE 95
[2023-07-24 08:48] VITALS: BP 144/73; PULSE 103; RESP 18; TEMP 37.2; O2SAT 96
[2023-07-24] MEDS: Ensure Plus High Protein 120 ML LIQUID PO ×2 (08:48→11:08)
[2023-07-24] MEDS: Pantoprazole Sodium 40 MG in 0.9% Normal Saline (100mL MB+) 100 ML 330 MG IV (08:48)
--- NOTE | 2023-07-24 10:00 | TREXTCAR_ITS ---
Diet Diet Order/Speech Therapy: 07/22/23 13:29 Diet: Regular - General Is pt able to select menu?: No Diet Comments: OR 6 hours prior to procedure Routine Orders/Code Status Suppository Type: Dulcolax 10mg Suppository Frequency: Daily PRN Therapies Weight Bearing: Weight bearing as tolerated Extremity Affected:: Bilateral Lower Physical Therapy: Eval and Treat Occupational Therapy: Eval and Treat Speech Therapy: Eval and Treat Problem/Diagnosis (1) Anemia: Status: Acute Code(s): D64.9 - Anemia, unspecified (2) Weakness: Status: Acute Code(s): R53.1 - Weakness Plan This is 78-year-old gentleman who was brought by EMS for generalized weakness for about 2 weeks along with confusion. He has not gone outside for grocery or laundry because of tiredness/weakness. Constipation for past 2 weeks, but had last BM yesterday. Intermittent upper abdominal pain for past 2 weeks. No previous abdominal surgeries. Has been losing weight for past 2 months. Other chronic issues include bilateral leg pain. No fever chills nausea vomiting chest pain shortness of breath. #Acute on chronic anemia: Patient is admitted to PCU. Admitted with hemoglobin 3.6. Iron profile consistent with iron versus anemia with iron saturation 3.6%, low ferritin 4, iron 12 TIBC normal. GI is consulted. Hemoglobin was 6.9 after 3 units of transfusion therefore 1 more unit is ordered. On IV PPI drip. Chest x-ray initially reviewed symptoms gas shadow in the chest area consistent with hiatus hernia. Cardiomegaly. GI is consulted. PT and OT. 07/20: GI note reviewed. Plan for EGD and colonoscopy tomorrow. Vitals in normal range. Hemoglobin 8.2. Or for further transfusion. Colon prep starting today 07/21: Patient had EGD and colonoscopy as described below. Continue PPI. Impressions : - Normal esophagus. - Medium-sized hiatal hernia. - Oozing duodenal ulcer with a visible vessel. Injected. Treated with a heater probe. Biopsied. - Outpatient placement of duodenal stent over the duodenal ulcer to allow for healing. - Protonix 40 mg twice a day Recommendations : - Await pathology results. - Repeat upper endoscopy in 2 years for surveillance. - Continue present medications. - No aspirin, ibuprofen, naproxen, or other non-steroidal anti-inflammatory drugs for 12 weeks. Impressions : - Preparation of the colon was fair. - Diverticulosis in the recto-sigmoid colon, in the sigmoid colon and in the descending colon. - One 5 mm polyp in the transverse colon, removed with a cold snare. Resected and retrieved. - Stool in the recto-sigmoid colon, in the sigmoid colon and in the cecum. - The examination was otherwise normal on direct and retroflexion views. Recommendations : No NSAIDs.- Await pathology results. - Repeat colonoscopy in 1 year for surveillance. 07/22: Patient seen and examined. Clinically he is ready for walk but functionally is not strong to walk and needs assistance therefore need SNF. PT and OT on board. 07/23: Patient is frustrated that there making to take him pill and he does not need it. Please see below. Patient is going to discharge to TCU for rehab #Elevated blood pressure: * Not a known hypertensive. * Blood pressure has been in the 140s and 150s systolic though was done in the 120 systolic earlier today. BP 158/87. * Started on lisinopril 10 mg daily. The patient will need home or ambulatory BP monitoring to diagnose hypertension. 07/23: Patient is angry and frustrated that he is being given lisinopril is giving him hallucinations mainly visual. He is seeing people on the wall. I tried to tell him that lisinopril does not has this common side effects but is slightly that he cannot be made to take the pill. I said he has a ride to take the pill or refuse it. As a physician I just tried to suggest and recommend. Patient agreed to take another pill therefore amlodipine 2.5 mg ordered. Ideally, diuretic is better for elderly chlorthalidone low-dose but low-dose not available in the pharmacy. DVT prophylis SCDs. No anticoagulation due to anemia COde status: full code * Patient counseled extensively about different types of CODE STATUS including full code, DNR CCA and DNR CCA. Patient elects to be full code. He doesnt have any close relatives he would want to be his POA. He does have two cousins but he is not sure he would want either of them to be his POA. * Discharge medication reconciliation done. Discharge follow-up instructions completed. Discharge process discussed with the patient and all questions were answered to patient's satisfaction. Follow with PCP in 1 to 2 weeks Total time spent, exact 35 minutes on discharge meds reconciliation, examination, coordination of care with nurses and ancillary staff, review of imaging and blood test and discussion with the patient on follow-up instructions. Allergies/Procedures Done in Hospital Allergies No Known Allergies Allergy (Verified 07/19/23 11:24) Type of Care/Length of Stay Estimated LOS: Convalescent Care Less Than 30 days Type of Care Needed: Skilled Rehab Potential: Good Prognosis: Good Additional Orders/Day of Discharge Day of Discharge: 07/24/23 Dietary and Speech Recommendations Dietitian Recommendations/Changes: Continue Regular diet to optimize oral intakes. RD will order 120mL EPHP TID with medpass to provide supplemental energy. Discharge Plan Admission Admit Date/Time: 07/19/23 13:59 Primary Reason for Your Visit: Severe anemia. Acute GI bleed Attending Provider: Saman Anderson Primary Care Provider: Care Physician,No Primary Consulting Providers: Meseret Butts Discharge Orders/Prescriptions Prescriptions: New acetaminophen 325 mg Tablet 650 mg PO Q6H PRN PRN (Reason: Pain 1-10 Or Fever >100.7) Qty: 0 0RF amlodipine 2.5 mg Tablet 2.5 mg PO DAILY Qty: 0 0RF Rx Instructions: Hold for SBP less than 130 mmHg pantoprazole [Protonix] 40 mg tablet,delayed release (DR/EC) 40 mg PO BID 30 Days Qty: 60 2RF Rx Instructions: advised TWICE DAILY FOR 2 WEEKS THEN ONCE DAILY ferrous sulfate 325 mg (65 mg iron) tablet 325 mg PO QODAY Qty: 30 2RF ascorbic acid (vitamin C) 500 mg tablet 500 mg PO BID Qty: 60 2RF Referrals / Follow Up: Sathya Patiño DO [Med Staff - Active Staff] - Within 1 Month Care Physician,No Primary [Primary Care Provider] - Within 2 Weeks NOT,DEFINED [Non-Staff] - Disposition Disposition (needs filled in before D/C Order can be placed): [facility]
[2023-07-24] MEDS: Chlorthalidone 50 MG Tablet 12.5 MG PO (11:08)
[2023-07-24] MEDS: amLODIPine 2.5 MG Tablet PO (11:44)
--- NOTE | 2023-07-24 12:33 | DS.PCM_ITS ---
Providers Date of Admission: 07/19/23 Date of Discharge: 07/24/23 Primary Care Physician: Opal Primary Care Phys Consultations 07/19/23 15:35 Consult: Gastroenterology Routine Consulting Provider: [facility] Reason for Consult: acute anemia EMERGENT Consult: No MD Notified: Yes Date Notified: 07/19/23 Time Notified: 14:01 Method of Notification: Text Reason For Visit: ACUTE ANEMIA Diagnosis Discharge Diagnosis (1) Anemia: Status: Acute Code(s): D64.9 - Anemia, unspecified (2) Weakness: Status: Acute Code(s): R53.1 - Weakness Plan This is 78-year-old gentleman who was brought by EMS for generalized weakness for about 2 weeks along with confusion. He has not gone outside for grocery or laundry because of tiredness/weakness. Constipation for past 2 weeks, but had last BM yesterday. Intermittent upper abdominal pain for past 2 weeks. No prev ious abdominal surgeries. Has been losing weight for past 2 months. Other chronic issues include bilateral leg pain. No fever chills nausea vomiting chest pain shortness of breath. #Acute on chronic anemia: Patient is admitted to PCU. Admitted with hemoglobin 3.6. Iron profile consistent with iron versus anemia with iron saturation 3.6%, low ferritin 4, iron 12 TIBC normal. GI is consulted. Hemoglobin was 6.9 after 3 units of transfusion therefore 1 more unit is ordered. On IV PPI drip. Chest x-ray initially reviewed symptoms gas shadow in the chest area consistent with hiatus hernia. Cardiomegaly. GI is consulted. PT and OT. 07/20: GI note reviewed. Plan for EGD and colonoscopy tomorrow. Vitals in normal range. Hemoglobin 8.2. Or for further transfusion. Colon prep starting today 07/21: Patient had EGD and colonoscopy as described below. Continue PPI. Impressions : - Normal esophagus. - Medium-sized hiatal hernia. - Oozing duodenal ulcer with a visible vessel. Injected. Treated with a heater probe. Biopsied. - Outpatient placement of duodenal stent over the duodenal ulcer to allow for healing. - Protonix 40 mg twice a day Recommendations : - Await pathology results. - Repeat upper endoscopy in 2 years for surveillance. - Continue present medications. - No aspirin, ibuprofen, naproxen, or other non-steroidal anti-inflammatory drugs for 12 weeks. Impressions : - Preparation of the colon was fair. - Diverticulosis in the recto-sigmoid colon, in the sigmoid colon and in the descending colon. - One 5 mm polyp in the transverse colon, removed with a cold snare. Resected and retrieved. - Stool in the recto-sigmoid colon, in the sigmoid colon and in the cecum. - The examination was otherwise normal on direct and retroflexion views. Recommendations : No NSAIDs.- Await pathology results. - Repeat colonoscopy in 1 year for surveillance. 07/22: Patient seen and examined. Clinically he is ready for walk but functionally is not strong to walk and needs assistance therefore need SNF. PT and OT on board. 07/23: Patient is frustrated that there making to take him pill and he does not need it. Please see below. Patient is going to discharge to TCU for rehab #Elevated blood pressure: * Not a known hypertensive. * Blood pressure has been in the 140s and 150s systolic though was done in the 120 systolic earlier today. BP 158/87. * Started on lisinopril 10 mg daily. The patient will need home or ambulatory BP monitoring to diagnose hypertension. 07/23: Patient is angry and frustrated that he is being given lisinopril is giv ing him hallucinations mainly visual. He is seeing people on the wall. I tried to tell him that lisinopril does not has this common side effects but is slightly that he cannot be made to take the pill. I said he has a ride to take the pill or refuse it. As a physician I just tried to suggest and recommend. Patient agreed to take another pill therefore amlodipine 2.5 mg ordered. Ideally, diuretic is better for elderly chlorthalidone low-dose but low-dose not available in the pharmacy. DVT prophylis SCDs. No anticoagulation due to anemia COde status: full code * Patient counseled extensively about different types of CODE STATUS including full code, DNR CCA and DNR CCA. Patient elects to be full code. He doesnt have any close relatives he would want to be his POA. He does have two cousins but he is not sure he would want either of them to be his POA. * Discharge medication reconciliation done. Discharge follow-up instructions completed. Discharge process discussed with the patient and all questions were answered to patient's satisfaction. Follow with PCP in 1 to 2 weeks Total time spent, exact 35 minutes on discharge meds reconciliation, examination, coordination of care with nurses and ancillary staff, review of imaging and blood test and discussion with the patient on follow-up instructions. Medications at Discharge Home Medications acetaminophen 325 mg tablet 650 mg (2 x 325 mg) PO Q6H PRN PRN Pain 1-10 Or Fever >100.7 #0 tabs 07/24/23 amlodipine 2.5 mg tablet 2.5 mg PO DAILY #0 tabs 07/24/23 ascorbic acid (vitamin C) 500 mg tablet 500 mg PO BID #60 tabs 07/24/23 ferrous sulfate 325 mg (65 mg iron) tablet 325 mg PO QODAY #30 tabs 07/24/23 pantoprazole 40 mg tablet,delayed release (Protonix) 40 mg PO BID 1 month #60 tabs 07/24/23 Physical Exam Narrative Seen and examined Patient is frustrated and unhappy that he is made to take the pill lisinopril. With lisinopril he states that he gets visual hallucinations seeing people on the wall. Patient states normal bowel movement is once in 2 weeks but he is moving in the morning to days. No abdominal pain. No further GI bleed Difficulty in balance. Physical exam General: Awake, mild lethargic oriented x3, Cooperative. looking fatigue HEENT: Atraumatic, PERRLA, EOMI, Normocephalic Oral: Oral mucosa moist. No Gingival or Mucosal Lesions/ Ulcerations Neck: Supple, No JVD, Negative Carotid Bruits Chest wall/Lungs: Air entry diminished in bilateral lung bases. No crepitation/rhonchi Cardiovascular: Regular rate, Regular Rhythm, Normal S1, Normal S2, No M/G/R Abdomen: Bowel Sounds Present, Soft, Non Tender, Non-Distended : No dysuria. No renal angle tenderness. No suprapubic tenderness. Extremities: Mild pitting edema, Capillary Refill Less than 3 Seconds Skin: No rashes, No breakdown Musculoskeletal: No Tenderness to Palpation of Joints or Extremities. Muscle strength decreased 4+/5 at major joints. Neurological: Cranial nerves II-XII grossly intact, DTR 2+/4. No acute focal neurological deficit. Psych/Mental Status: Flat affect. Weight / BMI Weight Weight: 212 lb 15.465 oz Body Mass Index (BMI) 30.5 ABG / Lab / Microbiology Data 07/22/23 04:25 07/22/23 04:25 Microbiology: Microbiology 07/19/23 13:40 Stool Stool Occult Blood ([facility]) - Final Occult Blood Positive Meaningful Use Info Meaningful Use Diagnoses (Choose all that apply): None applicable Discharge Plan Admission Admit Date/Time: 07/19/23 13:59 Primary Reason for Your Visit: Severe anemia. Acute GI bleed Attending Provider: Saman Anderson Primary Care Provider: Care Physician,No Primary Consulting Providers: Meseret Butts Discharge Orders/Prescriptions Prescriptions: New acetaminophen 325 mg Tablet 650 mg PO Q6H PRN PRN (Reason: Pain 1-10 Or Fever >100.7) Qty: 0 0RF amlodipine 2.5 mg Tablet 2.5 mg PO DAILY Qty: 0 0RF Rx Instructions: Hold for SBP less than 130 mmHg pantoprazole [Protonix] 40 mg tablet,delayed release (DR/EC) 40 mg PO BID 30 Days Qty: 60 2RF Rx Instructions: advised TWICE DAILY FOR 2 WEEKS THEN ONCE DAILY ferrous sulfate 325 mg (65 mg iron) tablet 325 mg PO QODAY Qty: 30 2RF ascorbic acid (vitamin C) 500 mg tablet 500 mg PO BID Qty: 60 2RF Referrals / Follow Up: Sathya Patiño, [Med Staff - Active Staff] - Within 1 Month Care Physician,No Primary [Primary Care Provider] - Within 2 Weeks NOT,DEFINED [Non-Staff] - Disposition Disposition (needs filled in before D/C Order can be placed): [facility] Charges/Coding Visit Charges Inpatient E&M: 64072 Disch Hosp >30min
--- NOTE | 2023-07-24 12:46 | CASEMGMT ---
TCU is able to take patient. GEETHA notified patient and physician. SW answered patient's questions. SW will call patient's cousin Carmen to let her know about the plan for today. GEETHA called Carmen and left her a voice mail letting her know patient will go to TCU today. GEETHA let her know his new room number and how to get to TCU. Plan: d/c to [facility] TCU under skilled level of care. Karena HARRIS
--- NOTE | 2023-07-24 13:02 | NURSING ---
called report to nurse Martin on TCU
[2023-07-24 13:42] VITALS: BP 131/79; PULSE 99; RESP 18; TEMP 36.3; O2SAT 100
== END 2023-07-24 14:15 | DRG 378 ==
LOC: ED 12:37 → PCU 14:11
PROVIDERS: Internal Medicine Gastroenterology; Physician Assistant; Admitting Provider Student in an Organized Health Care Education/Training Program; Emergency Provider Emergency Medicine; Visit Provider Internal Medicine
PROC: 0DJD8ZZ Inspection of Lower Intestinal Tract, Via Natural or Artificial Opening Endoscopic (ICD-10-PCS; CPT 45378; principal; 2023-07-22 12:55)
DX: K26.4 Chronic or unspecified duodenal ulcer with hemorrhage (principal); D62 Acute posthemorrhagic anemia; K57.31 Diverticulosis of large intestine without perforation or abscess with bleeding; K44.9 Diaphragmatic hernia without obstruction or gangrene; D12.3 Benign neoplasm of transverse colon; K31.A0 Gastric intestinal metaplasia, unspecified; Z68.30 Body mass index [BMI] 30.0-30.9, adult; R62.7 Adult failure to thrive; R03.0 Elevated blood-pressure reading, without diagnosis of hypertension
CPT/HCPCS: 36415; 71046; 80048; 80053; 81001; 82274; 82728; 83540; 83550; 83690; 84484; 85014; 85018; 85025; 86850; 86900; 86901; 86920; 88305; 93005; 94668; 97116; 97162; 97165; 97530; 99284; J7030; J7040; J7120; P9016; A4216; J1940; J2405

== ENCOUNTER 2023-07-24 14:28 | Inpatient (IN) | payer MEDICARE, SELFPAY ==
[2023-07-24 14:33] VITALS: BP 133/64; PULSE 93; RESP 20; TEMP 36.4; O2SAT 98; BMI 29.9
[2023-07-24 15:20] VITALS: O2SAT 98
[2023-07-24] MEDS: Ensure Plus High Protein 120 ML LIQUID PO (18:24)
--- NOTE | 2023-07-24 19:56 | HP.PCM_ITS ---
HPI - General General Date of Admission: 07/24/23 Date of Service: 07/24/23 Chief Complaint: Here for rehabililtation. HPI Narrative 07/19/2023 PAYTON GILL, is a 78 Male who presents to [facility] ED with confusion. Generalized weakness for 2 weeks. Given up due to weakness, fatigue. Cousin called EMS, constipated for 2 weeks, no PCP. Losing weight, bilateral leg pain. Pale, Hemoglobin 3.6. Transfuse [address] Patiño recommended Pantoprazole 40mg bid. 07/19/2023 Admit to [facility]. Transfuse 2 units PRBC, check iron, NPO, Pantoprazole IV. PT/OT for Debility. 07/19/2023 Transfuse 4 units PRBC. 07/20/2023 Dyspnea on exertion, fatigue, weakness. Dark stool, patient thought 2/2 Pepto Bismol. Hemoglobin 6.9 after 3 unit PRBC transfusion, Transfuse 1 more unit. PPI IV. PT/OT. Lisinopril 10mg daily added for HTN. 07/21/2023 Hemoglobin 8.2. 07/22/2023 Dr. Patiño EGD medium sized hiatal hernia, oozing duodenal ulcer, injected, heater probe, biopsy. Recommend duodenal stent to allow for healing. Protonix 40mg bid. 07/22/2023 Dr. Patiño colonoscopy showed diverticulosis, transverse colon polyp resected. 07/22/2023 Hemoglobin 8.6. Blood pressure needs better control. 07/23/2023 Awake, chronic PEDRAZA 2/2 aneia. Difficulty with walking, balance. PT/OT for SNF. 07/24/2023 Admit to TCU with debility, here for rehabilitation, strengthening, prior to discharge home alone. [facility] Medical History (Updated 07/24/23 @ 20:[address] Heath Sloan MD) Acute blood loss anemia Debility Duodenal ulcer Encephalopathy Essential (primary) hypertension Hiatal hernia Migraines Non-smoker Upper gastrointestinal bleeding Home Medications acetaminophen 325 mg tablet 650 mg (2 x 325 mg) PO Q6H PRN PRN Pain 1-10 Or Fever >100.7 #0 tabs 07/24/23 [Rx Last Taken Unknown] amlodipine 2.5 mg tablet 2.5 mg PO DAILY BP #0 tabs 07/24/23 [Rx Last Taken 07/24/23] ascorbic acid (vitamin C) 500 mg tablet 500 mg PO BID supplement #60 tabs 07/24/23 [Rx Last Taken Unknown] ferrous sulfate 325 mg (65 mg iron) tablet 325 mg PO QODAY supplement #30 tabs 07/24/23 [Rx Last Taken Unknown] pantoprazole 40 mg tablet,delayed release (Protonix) 40 mg PO BID reflux 1 month #60 tabs 07/24/23 [Rx Last Taken Unknown] Allergy/AdvReac Type Severity Reaction Status Date / Time No Known Allergies Allergy Verified 07/19/23 11:24 Family History (Updated 07/24/23 @ 20:[address] Heath Sloan MD) Father COPD (chronic obstructive pulmonary disease) CVA (cerebral vascular accident) Mother COPD (chronic obstructive pulmonary disease) Tobacco abuse Surgical History (Updated 07/24/23 @ 20:[address] Heath Sloan MD) History of tonsillectomy Social History (Updated 07/24/23 @ 20:[address] Heath Sloan MD) household members: none Smoking Status: Never smoker alcohol intake: never substance use type: does not use ROS Constitutional Constitutional: Reports fatigue and weakness; Denies chills, fever(s) or weight gain ENT HEENT: Denies headache(s), nasal congestion or nasal discharge Cardiovascular Cardiovascular: Denies chest pain or palpitations Respiratory/Chest Respiratory/Chest: Reports dyspnea on exertion; Denies cough, excessive phlegm production or shortness of breath with exertion Gastrointestinal Gastrointestinal: Denies abdominal pain, nausea or vomiting Genitourinary Genitourinary: Denies dysuria Musculoskeletal Musculoskeletal: Denies joint pain or joint swelling Integumentary Integumentary: Denies rash or wounds Neurologic Neurologic: Denies focal weakness, numbness or tingling Psychiatric Psychiatric: Denies anxiety, auditory hallucinations, depression, homicidal ideation or suicidal ideation Vital Signs Vital Signs Vital Signs: 07/24/23 14:33 07/24/23 15:20 Temperature 97.5 F L Temperature Source Temporal Pulse Rate 93 Pulse Rhythm Regular Pulse Strength Normal (2+) Respiratory Rate 20 H Respiratory Effort Normal Respiratory Depth Normal Respiratory Pattern Normal Blood Pressure 133/64 H Blood Pressure Mean 87 Blood Pressure Source Monitor Blood Pressure Position Semi-Fowlers Blood Pressure Location Right Arm Pulse Ox 98 98 Oxygen Delivery Method Room Air Room Air Weight Weight: 94.574 kg Body Mass Index (BMI) 29.9 Physical Exam Const alert General Appearance: cooperative HEENT normocephalic Eyes PERRL and EOMs intact bilaterally Neck supple, no JVD and no carotid bruits Resp normal respiratory effort, normal air movement and clear to auscultation bilaterally Cardio regular rate and regular rhythm GI normal to inspection, nondistended, normoactive bowel sounds, non-tender and non-distended Extremity normal capillary refill General Extremity: Negative for edema Skin no rashes or lesions noted General Skin Exam: no breakdown Psych affect normal Appearance: appropriate Assessment & Plan Assessment/Plan (1) Debility: (2) Encephalopathy: (3) Weakness: (4) Upper gastrointestinal bleeding: (5) Duodenal ulcer: (6) Acute blood loss anemia: (7) Essential (primary) hypertension: (8) Hiatal hernia: PLAN: Plan 78 year old male with below past medical history hospitalized for acute blood loss anemia 2/2 bleeding duodenal ulcer, requiring 4 units PRBC transfusion, complicated by encephalopathy, hiatal hernia, hypertension, admitted to TCU with debility, here for rehabilitation, strengthening, prior to discharge home alone. * Debility - PT/OT. * Pain - Tylenol 1000mg q6 prn pain (1-10). * Bowel - senna/colace 1 tablet bid prn, Magnesium citrate 300ml daily prn. * Adult immunization - Administer pneumonia vaccine, covid vaccine, flu vaccine as appropriate. * DVT prophylaxis - Hold, UGIB. * Hypertension - Amlodipine 2.5mg daily. * Iron deficiency anemia - Vitamin C 500mg daily, Ferrex 150mg daily. * Nutrition - Ensure Enlive 120ml tidcm. * Tinea Corporis - Nystatin powder topical bid. * Duodenal ulcer - Pantoprazole 40mg bid thru 08/07/2023, then 40mg daily. *
[2023-07-24] MEDS: Pantoprazole Sodium 40 MG Tablet PO (21:35)
[2023-07-24] MEDS: Nystatin Powder 15gm Bottle 1 APPLIC TOPICAL (21:36)
[2023-07-25 05:35] LABS: Absolute Lymphocyte Count 1.19 X10^3/uL (0.83-4.51); Absolute Neutrophil Count 4.4 X10^3/uL (2.0-7.7); Basophil# 0.03 X10^3/uL; Basophil% 0.5 % (0-1); Eosinophil# 0.32 X10^3/uL; Eosinophils% 5.1 % (0-5); Hematocrit 25.5 % (40-54); Hemoglobin 7.9 g/dL (13.0-16.5); Lymphocyte # 1.19 X10^3/ul (0.83-4.51); Lymphocyte % 18.8 % (19-41); Mean Corpuscular Hgb 26.9 pg (27.0-32.0); Mean Corpuscular Volume 86.7 fL (80-94); Mean Platelet Vol. 8.4 fl (6.2-12.0); Monocyte% 6.3 % (0-10); NRBC Flagged by Analyzer 0 % (0-5); Neutrophil # 4.36 X10^3/uL (2.7-7.7); Neutrophil % 68.8 % (47-70); Platelet Count 227 K/mm3 (150-450); RBC Distribution Width CV 15.9 % (11.6-14.6); Red Blood Count 2.94 M/mm3 (4.6-6.2); White Blood Count 6.3 K/mm3 (4.4-11.0)
[2023-07-25 05:57] LABS: Anion Gap 6 (5-15); BUN 14 mg/dL (7-18); BUN/Creat Ratio 16.6 RATIO (10-20); Calcium,Total 7.9 mg/dL (8.5-10.1); Chloride 105 mmol/L (98-107); Creatinine, Serum 0.84 mg/dL (0.70-1.30); EST Glomerular Filtration Rate 94 mL/min (>60); Est Glom Filt Rate - Afr Amer 114 mL/min (>60); Estimated Creatinine Clearance 85.03 ml/min; Glucose 93 mg/dL (74-106); Potassium 3.8 mmol/L (3.5-5.1); Sodium Level 137 mmol/L (136-145)
[2023-07-25 08:30] VITALS: BP 99/55; PULSE 101; RESP 16; TEMP 36.7; O2SAT 96
[2023-07-25] MEDS: Iron Polysaccharide Complex 150 MG CAPSULE PO (08:31)
[2023-07-25] MEDS: Ensure Plus High Protein 120 ML LIQUID PO ×3 (08:31→18:09)
[2023-07-25] MEDS: Ascorbic Acid 500 MG Tablet PO (08:32)
[2023-07-25] MEDS: Nystatin Powder 15gm Bottle 1 APPLIC TOPICAL ×2 (08:32→19:58)
[2023-07-25] MEDS: Pantoprazole Sodium 40 MG Tablet PO ×2 (08:32→20:00)
--- NOTE | 2023-07-25 08:38 | NURSING ---
HELD NORVASC AT THIS TIME PER ORDER ON JUL, DECREASED BP 99/55 HR 100. WILL RECHECK LATER THIS AM.
--- NOTE | 2023-07-25 09:50 | NURSING ---
Financial Institution Vice President Note; Activity Asset: Sandee Andrade is independent in his choice of daily activities. His cousin will bring him the newspaper and he has his owns word puzzle book. He has a cell phone he uses to talk on. He stated he prefers not to have visits from the oyster opener or therapy dog. Raymond really just wants to do therapy and get back home. Staff will remind him of weekly activities and offer room activities and respect his right to say no.
[2023-07-25 10:27] VITALS: BP 126/63; PULSE 92
[2023-07-25] MEDS: Tuberculin,Purif.prot.deriv. 50 TU/ML Vial 0.1 ML ID (10:58)
--- NOTE | 2023-07-25 13:50 | PCM.PN.DRR ---
Documented by User: Jason Alvarado 07/25/23 15:13 TCU RX Drug Regimen Review Subjective/Objective Subjective/Objective: Subjective: 78 year old man admitted to [facility] for GI bleed, anemia and debility. Required several units blood and endoscopic iintervention. Admitted now to TCU for generalized weakness, strengthening and rehab prior to discharge home. Objective: Allergies No Known Allergies Allergy (Verified 07/19/23 11:24) Current Medications Generic Name Dose Route Start Last Admin Trade Name Freq PRN Reason Stop Dose Admin Acetaminophen 1,000 mg 07/24/23 20:27 Acetaminophen 500 Mg Tablet PO Q6H PRN PRN Pain Score 1-10 Amlodipine Besylate 2.5 mg 07/25/23 10:00 07/25/23 10:27 Amlodipine 2.5 Mg Tablet PO Not Given DAILY [facility] Protocol Ascorbic Acid 500 mg 07/25/23 10:00 07/25/23 08:32 Ascorbic Acid 500 Mg Tablet PO 500 mg DAILY JANICE Administration Magnesium Citrate 300 ml 07/24/23 20:25 Magnesium Citrate 300 Ml PO DAILY PRN Constipation Nutritional Formula (Lactose Free) 120 ml 07/24/23 17:45 07/25/23 08:35 Ensure Plus High Protein 120 Ml Liquid PO 120 ml TIDCM JANICE Administration Nystatin 1 applic 07/24/23 22:00 07/25/23 08:32 Nystatin Powder 15gm Bottle TOPICAL 1 applic BID [facility] Administration Protocol Pantoprazole Sodium 40 mg 07/24/23 22:00 07/25/23 08:32 Pantoprazole Sodium 40 Mg Tablet PO 08/07/23 10:01 40 mg BID JANICE Administration Pantoprazole Sodium 40 mg 08/08/23 10:00 Pantoprazole Sodium 40 Mg Tablet PO DAILY JANICE Polysaccharide Iron Complex 150 mg 07/25/23 10:00 07/25/23 08:31 Iron Polysaccharide Complex 150 Mg Capsule PO 150 mg DAILY JANICE Administration Senna/Docusate Sodium 1 tablet 07/24/23 20:25 Senna/Docusate Sodium 1 Tablet PO BID PRN CONSTIPATION Tuberculin PPD 0.1 ml 08/01/23 10:00 Tuberculin,Purif.Prot.Deriv. 50 Tu/Ml Vial ID 08/01/23 10:01 X1 ONE Problem List (Updated 07/24/23 @ 20:[address] Heath Sloan MD) Hiatal hernia (Acute) Essential (primary) hypertension (Acute) Acute blood loss anemia (Acute) Duodenal ulcer (Acute) Upper gastrointestinal bleeding (Acute) Encephalopathy (Acute) Debility (Acute) Weakness (Acute) Vital Signs Temp Pulse Resp BP Pulse Ox O2 Del Method 98.1 F 92 16 126/63 H 96 Room Air 07/25/23 08:30 07/25/23 10:27 07/25/23 08:30 07/25/23 10:27 07/25/23 08:30 07/25/23 08:30 Oxygen Delivery Method Room Air Weight: 94.574 kg Body Mass Index (BMI) 29.9 Sodium 137 mmol/L (136-145) 07/25/23 05:10 Potassium 3.8 mmol/L (3.5-5.1) 07/25/23 05:10 Chloride 105 mmol/L (98-107) 07/25/23 05:10 Carbon Dioxide 26.0 mmol/L (21.0-32.0) 07/25/23 05:10 Anion Gap 6 (5-15) 07/25/23 05:10 BUN 14 mg/dL (7-18) 07/25/23 05:10 Creatinine 0.84 mg/dL (0.70-1.30) 07/25/23 05:10 Est GFR (MDRD) Af Amer 114 mL/min (>60) 07/25/23 05:10 Est GFR (MDRD) Non-Af 94 mL/min (>60) 07/25/23 05:10 BUN/Creatinine Ratio 16.6 RATIO (10-20) 07/25/23 05:10 Glucose 93 mg/dL (74-106) 07/25/23 05:10 Assessment/Plan: 1) Pain- Tylenol 1000mg po q6h prn pain 1-10. Please continue to monitor for signs/symptoms of pain and prn usage. Since admission, no med needed/given for pain. 2) Duodenal ulcer-Pantoprazole 40mg po bid thru 08.07.23, then 40mg po daily. Please continue to monitor hemoglobin (7.9 on 07.24) and signs/symptoms of bleeding. 3) Iron deficiency anemia- Iron polysaccharide 150mg po daily, Ascorbic acid 500mg po daily. Please continue to monitor for effectiveness ( hemoglobin 7.9 on 3.14), signs/symptoms of GI bleeding, GI distress,constipation. 4) Hypertension-Amlodipine 2.5mg po daily. Please continue to monitor BP (range 99/55-166/84), pulse (range 74-113), symptoms of orthostasis, dizziness. 5) DVT Prophylaxis- No pharmacologic prophylaxis at this time due to UGIB. Continue to monitor for signs/symptoms of VTE. 6) Bowel: Senna/Docusate 1 tab po BID prn, Mag Citrate 300mg po daily prn. Please continue to monitor for increased/decreased usage, constipation/diarrhea. No med documentation since admission. 7) Tinea Corporis- Nystatin powder topical BID. Please continue to monitor for effectiveness, skin integrity, signs of infection. Assessment/Plan for indications treated with psychotropic medications: None at this time. Medical chart and medication regimen reviewed. The following medication irregularities or issues were identified: None at this time. Date Date of Note:: 07/25/23 Documented by User: Dr. Heath Sloan MD 07/25/23 15:33 TCU RX Drug Regimen Review Provider Comments Provider responsibility Provider Comments to Recommendations by Pharmacy: Agree
--- NOTE | 2023-07-25 16:45 | CASEMGMT ---
Social Work Met with patient to complete initial assessment. Introduced self and role. Verified/updated contacts. Pt confirmed code status as full code. SW educated to completing advanced directives. Pt to consider. SW educated to Medicare benefit and copays of $204/day beginning on 08/12, which is day 21/100, if pt remains. Pt's goal is to DC prior to day 21 to avoid copays. SW will continue to follow for DC planning. Sabrina Arciniega MSW BRAKES INSPECTOR
[2023-07-25] MEDS: guaiFENesin 600 MG Tablet PO (18:10)
[2023-07-25 20:00] VITALS: RESP 16
[2023-07-26 05:36] LABS: Hematocrit 25.4 % (40-54)
[2023-07-26] MEDS: Phenol/Sodium Phenolate 180ML 3 SPRAY MUCOUS MEM (09:16)
[2023-07-26] MEDS: Ensure Plus High Protein 120 ML LIQUID PO ×2 (09:16→17:00)
[2023-07-26] MEDS: Iron Polysaccharide Complex 150 MG CAPSULE PO (09:17)
[2023-07-26] MEDS: amLODIPine 2.5 MG Tablet PO (09:17)
[2023-07-26] MEDS: Senna/Docusate Sodium 1 Tablet PO (09:18)
[2023-07-26] MEDS: Pantoprazole Sodium 40 MG Tablet PO ×2 (09:18→20:35)
[2023-07-26] MEDS: guaiFENesin 600 MG Tablet PO (09:18)
[2023-07-26] MEDS: Nystatin Powder 15gm Bottle 1 APPLIC TOPICAL ×2 (09:18→20:33)
[2023-07-26] MEDS: Ascorbic Acid 500 MG Tablet PO (09:18)
[2023-07-26] MEDS: Furosemide 40 MG Tablet PO (13:57)
[2023-07-26 15:45] VITALS: BP 116/57; PULSE 89; RESP 18; TEMP 36.9; O2SAT 98
[2023-07-26] MEDS: Magnesium Citrate 300 ML PO (18:23)
[2023-07-27 08:20] VITALS: BP 122/61; PULSE 82; RESP 16; TEMP 36.5; O2SAT 96
[2023-07-27] MEDS: Potassium Chloride Oral Tablet 20 MEQ PO (08:22)
[2023-07-27] MEDS: Furosemide 40 MG Tablet PO (08:22)
[2023-07-27] MEDS: Iron Polysaccharide Complex 150 MG CAPSULE PO (08:22)
[2023-07-27] MEDS: guaiFENesin 600 MG Tablet PO (08:23)
[2023-07-27] MEDS: Pantoprazole Sodium 40 MG Tablet PO ×2 (08:23→21:15)
[2023-07-27] MEDS: amLODIPine 2.5 MG Tablet PO (08:23)
[2023-07-27] MEDS: Phenol/Sodium Phenolate 180ML 3 SPRAY MUCOUS MEM (08:23)
[2023-07-27] MEDS: Ensure Plus High Protein 120 ML LIQUID PO ×3 (08:23→17:50)
[2023-07-27] MEDS: Nystatin Powder 15gm Bottle 1 APPLIC TOPICAL ×2 (08:23→21:15)
[2023-07-27] MEDS: Ascorbic Acid 500 MG Tablet PO (08:23)
[2023-07-28] MEDS: Ensure Plus High Protein 120 ML LIQUID PO ×3 (08:19→17:21)
[2023-07-28] MEDS: Pantoprazole Sodium 40 MG Tablet PO ×2 (08:19→19:49)
[2023-07-28] MEDS: amLODIPine 2.5 MG Tablet PO (08:19)
[2023-07-28] MEDS: guaiFENesin 600 MG Tablet PO (08:20)
[2023-07-28] MEDS: Nystatin Powder 15gm Bottle 1 APPLIC TOPICAL ×2 (08:20→19:49)
[2023-07-28] MEDS: Ascorbic Acid 500 MG Tablet PO (08:20)
[2023-07-28] MEDS: Potassium Chloride Oral Tablet 20 MEQ PO (08:20)
[2023-07-28] MEDS: Iron Polysaccharide Complex 150 MG CAPSULE PO (08:20)
[2023-07-28] MEDS: Phenol/Sodium Phenolate 180ML 3 SPRAY MUCOUS MEM (08:20)
[2023-07-28] MEDS: Furosemide 40 MG Tablet PO (08:20)
[2023-07-28 08:22] VITALS: BP 110/70; PULSE 87; RESP 16; O2SAT 97
[2023-07-28 08:25] LABS: Anion Gap 4 (5-15); BUN 14 mg/dL (7-18); BUN/Creat Ratio 16.5 RATIO (10-20); Calcium,Total 8.1 mg/dL (8.5-10.1); Chloride 102 mmol/L (98-107); Creatinine, Serum 0.85 mg/dL (0.70-1.30); EST Glomerular Filtration Rate 93 mL/min (>60); Est Glom Filt Rate - Afr Amer 112 mL/min (>60); Estimated Creatinine Clearance 84.03 ml/min; Glucose 97 mg/dL (74-106); Sodium Level 132 mmol/L (136-145)
[2023-07-29 05:53] LABS: Hematocrit 27.2 % (40-54); Hemoglobin 8.4 g/dL (13.0-16.5)
[2023-07-29 06:38] LABS: Anion Gap 5 (5-15); BUN 16 mg/dL (7-18); BUN/Creat Ratio 19.2 RATIO (10-20); Calcium,Total 8.2 mg/dL (8.5-10.1); Chloride 102 mmol/L (98-107); Creatinine, Serum 0.83 mg/dL (0.70-1.30); EST Glomerular Filtration Rate 95 mL/min (>60); Est Glom Filt Rate - Afr Amer 115 mL/min (>60); Estimated Creatinine Clearance 86.06 ml/min; Glucose 97 mg/dL (74-106); Sodium Level 133 mmol/L (136-145)
[2023-07-29 09:49] VITALS: BP 115/55; PULSE 84; RESP 18; O2SAT 97
[2023-07-29] MEDS: Iron Polysaccharide Complex 150 MG CAPSULE PO (09:51)
[2023-07-29] MEDS: Potassium Chloride Oral Tablet 20 MEQ PO (09:51)
[2023-07-29] MEDS: Ensure Plus High Protein 120 ML LIQUID PO ×3 (09:51→17:42)
[2023-07-29] MEDS: amLODIPine 2.5 MG Tablet PO (09:52)
[2023-07-29] MEDS: Ascorbic Acid 500 MG Tablet PO (09:52)
[2023-07-29] MEDS: guaiFENesin 600 MG Tablet PO (09:52)
[2023-07-29] MEDS: Pantoprazole Sodium 40 MG Tablet PO ×2 (09:52→21:54)
[2023-07-29] MEDS: Furosemide 40 MG Tablet PO (09:52)
[2023-07-29] MEDS: Nystatin Powder 15gm Bottle 1 APPLIC TOPICAL ×2 (09:53→21:56)
--- NOTE | 2023-07-29 12:08 | NURSING ---
Offered covid vaccine, VIS provided. Patient refuses at this time.
--- NOTE | 2023-07-29 12:57 | CASEMGMT ---
Addendum entered by Sabrina Arciniega 07/29/23 15:55: Cousin visiting in room and this worker received permission to enter. Discussed advanced directives with pt and cousin, Carmen Moses, who is agreeable to being pt's HCPOA. SW assisted pt and cousin in having conversation about pt's wishes for cousin to feel comfortable being pt's voice, if needed. SW to complete AD prior to DC. Original Note: Social Work Notified by therapy to provide resources for [place] and [place]SS[place] to pt. SW spoke with pt and provided resources. Inquired about completing AD. Pt to speak with cousin during visit this evening and will notify this worker. WYATT JoW
[2023-07-29 13:44] VITALS: BP 129/61; PULSE 88; RESP 16; TEMP 36.8; O2SAT 97
[2023-07-29] MEDS: Menthol/Lanolin/Calamine/Znox 113 GM Tube 1 APPLIC TOPICAL (21:53)
[2023-07-29] MEDS: Phenol/Sodium Phenolate 180ML 3 SPRAY MUCOUS MEM (21:55)
[2023-07-29 22:30] VITALS: RESP 17
[2023-07-30] MEDS: Potassium Chloride Oral Tablet 20 MEQ PO (09:05)
[2023-07-30] MEDS: Furosemide 40 MG Tablet PO (09:05)
[2023-07-30] MEDS: Pantoprazole Sodium 40 MG Tablet PO ×2 (09:05→22:33)
[2023-07-30] MEDS: Iron Polysaccharide Complex 150 MG CAPSULE PO (09:05)
[2023-07-30] MEDS: Ascorbic Acid 500 MG Tablet PO ×2 (09:05→09:06)
[2023-07-30] MEDS: Ensure Plus High Protein 120 ML LIQUID PO ×3 (09:06→17:37)
[2023-07-30] MEDS: guaiFENesin 600 MG Tablet PO (09:06)
[2023-07-30] MEDS: Menthol/Lanolin/Calamine/Znox 113 GM Tube 1 APPLIC TOPICAL ×2 (09:06→22:32)
[2023-07-30] MEDS: amLODIPine 2.5 MG Tablet PO (09:06)
[2023-07-30] MEDS: Ipratropium Bromide 0.06% NASAL SPRAY 2 SPRAY NASAL ×2 (09:07→22:32)
[2023-07-30] MEDS: Nystatin Powder 15gm Bottle 1 APPLIC TOPICAL ×2 (09:08→22:32)
[2023-07-30 10:00] VITALS: RESP 16; O2SAT 99
[2023-07-30 14:05] VITALS: BMI 27.8
--- NOTE | 2023-07-30 14:41 | CASEMGMT ---
Social Work BIMS () and PHQ-2 () completed for MDS assessment. SW completed advanced directives with pt. Original and copy provided to pt. Copies placed on chart. WYATT Jo
[2023-07-30 17:39] VITALS: BP 131/62; PULSE 94; RESP 18; TEMP 36.1; O2SAT 96
[2023-07-30] MEDS: Phenol/Sodium Phenolate 180ML 3 SPRAY MUCOUS MEM (22:32)
[2023-07-30] MEDS: Montelukast 10 MG Tablet PO (22:33)
--- NOTE | 2023-07-31 08:46 | NURSING ---
Wireline Operator Note; MDS for 07/31/2023 Complete
[2023-07-31] MEDS: Iron Polysaccharide Complex 150 MG CAPSULE PO (09:13)
[2023-07-31] MEDS: Ipratropium Bromide 0.06% NASAL SPRAY 2 SPRAY NASAL ×2 (09:13→20:45)
[2023-07-31] MEDS: Potassium Chloride Oral Tablet 20 MEQ PO (09:13)
[2023-07-31] MEDS: Ensure Plus High Protein 120 ML LIQUID PO (09:13)
[2023-07-31] MEDS: amLODIPine 2.5 MG Tablet PO (09:14)
[2023-07-31] MEDS: Pantoprazole Sodium 40 MG Tablet PO ×2 (09:14→20:47)
[2023-07-31] MEDS: guaiFENesin 600 MG Tablet PO (09:14)
[2023-07-31] MEDS: Nystatin Powder 15gm Bottle 1 APPLIC TOPICAL ×2 (09:14→20:46)
[2023-07-31] MEDS: Furosemide 40 MG Tablet PO (09:14)
[2023-07-31 09:15] VITALS: BP 121/60; PULSE 87
[2023-07-31] MEDS: Menthol/Lanolin/Calamine/Znox 113 GM Tube 1 APPLIC TOPICAL ×2 (09:25→20:46)
--- NOTE | 2023-07-31 10:36 | CASEMGMT ---
Social Work IDT met with patient and cousin for care plan meeting. Discussed patient's progress in PT/OT/ST/SN. Educated to Medicare benefit. Pt is aware he does not have a secondary insurance and would start accruing copays on 08/12, at $204/day. Pt is unable to pay for the copays and goal is to DC prior. Pt is progressing well and IDT agreeable to DC by that time. SW revisited pt selecting a PCP. Pt agreeable to Dr. Sloan and Dr. Sloan on admission offered to be pt's PCP. SW also revisited use of resources provided for [place], home delivered meals and medical alert. Pt expressed not being used to being told what to do [from medical liaison] and continuously refers to himself as a loner. SW provided supportive listening. Cousin expressed pt's home being cluttered and pt may have difficulty using walker to get around in the home. Cousin also noted pt has a tub only - not a tub/shower, and pt sits and stands in the tub. OT to simulate to ensure safety prior to DC. SW offered skilled HHC PT/OT/SW/PURI at time of DC. Pt agreed. Pt also needs a FWW and SW to coordinate at time of DC. HHC will also take note of the condition of the home and assist as needed. SW offered to set DC date. Pt chose 08/06 and cousin can transport after work about 6 PM. Plan: DC home alone 08/06, HHC PT/OT/SW/PURI, MAIAW Sabrina Arciniega, HEAVY COIL WINDERChen TYSON
[2023-07-31 16:00] VITALS: BP 121/61; PULSE 80; RESP 16; TEMP 36.8; O2SAT 98
--- NOTE | 2023-07-31 19:30 | DS.PCM_ITS ---
Providers Date of Admission: 07/24/23 Primary Care Physician: No Primary Care Phys Reason For Visit: ACUTE ANEMIA Diagnosis Discharge Diagnosis (1) Debility: Status: Acute Code(s): R53.81 - Other malaise (2) Encephalopathy: Status: Acute Code(s): G93.40 - Encephalopathy, unspecified (3) Weakness: Status: Acute Code(s): R53.1 - Weakness (4) Upper gastrointestinal bleeding: Status: Acute Code(s): K92.2 - Gastrointestinal hemorrhage, unspecified (5) Duodenal ulcer: Status: Acute Code(s): K26.9 - Duodenal ulcer, unspecified as acute or chronic, without hemorrhage or perforation (6) Acute blood loss anemia: Status: Acute Code(s): D62 - Acute posthemorrhagic anemia (7) Essential (primary) hypertension: Status: Acute Code(s): I10 - Essential (primary) hypertension (8) Hiatal hernia: Status: Acute Code(s): K44.9 - Diaphragmatic hernia without obstruction or gangrene Plan 78 year old male with below past medical history hospitalized for acute blood loss anemia 2/2 bleeding duodenal ulcer, requiring 4 units PRBC transfusion, c omplicated by encephalopathy, hiatal hernia, hypertension, admitted to TCU with debility, here for rehabilitation, strengthening, prior to discharge home alone. * Debility - PT/OT. * Pain - Tylenol 1000mg q6 prn pain (1-10). * Bowel - senna/colace 1 tablet bid prn, Magnesium citrate 300ml daily prn. * Adult immunization - Administer pneumonia vaccine, covid vaccine, flu vaccine as appropriate. * DVT prophylaxis - Hold, UGIB. * Hypertension - Amlodipine 2.5mg daily. * Iron deficiency anemia - Vitamin C 500mg daily, Ferrex 150mg daily. * Nutrition - Ensure Enlive 120ml tidcm. * Tinea Corporis - Nystatin powder topical bid. * Duodenal ulcer - Pantoprazole 40mg bid thru 08/07/2023, then 40mg daily. * Medications at Discharge Home Medications amlodipine 2.5 mg tablet 2.5 mg PO DAILY 30 days #30 tabs 07/31/23 ascorbic acid (vitamin C) 500 mg tablet 500 mg PO DAILY 30 days #30 tabs 07/31/23 pantoprazole 40 mg tablet,delayed release 40 mg PO DAILY 30 days #30 tabs 07/31/23 polysaccharide iron complex 150 mg iron capsule (Ferrex) 150 mg PO DAILY 30 days #30 caps 07/31/23 Hospital Course Operations None Procedures EGD Summary of Care Provided Minutes Spent on Discharge: 35 Hospital Course: 78 year old male with below past medical history hospitalized for acute blood loss anemia 2/2 bleeding duodenal ulcer, requiring 4 units PRBC transfusion, complicated by encephalopathy, hiatal hernia, hypertension, admitted to TCU with debility, here for rehabilitation, strengthening, prior to discharge home alone. DC home alone 08/06, [facility] PT/OT/SW/PURI, FWW FWW: Patient is unable to use a cane and requires a walker for ambulation in the home and the community. Physical Exam Const alert General Appearance: cooperative HEENT normocephalic Eyes PERRL and EOMs intact bilaterally Neck supple, no JVD and no carotid bruits Resp normal respiratory effort, normal air movement and clear to auscultation bilaterally Cardio regular rate and regular rhythm GI normal to inspection, nondistended, normoactive bowel sounds, non-tender and n on-distended Extremity normal capillary refill General Extremity: Negative for edema Skin no rashes or lesions noted General Skin Exam: no breakdown Psych affect normal Appearance: appropriate Weight / BMI Weight Weight: 87.997 kg Body Mass Index (BMI) 27.8 ABG / Lab / Microbiology Data 07/29/23 05:35 07/29/23 05:35 D/C Instructions Discharge Diet: No restrictions Discharge Activity: Return to Normal Activity, May Shower and Use Walker Weight Bearing Status: Weight bearing as tolerated Call your doctor if you observe: Fever of 101 or Higher, Inability to urinate, Inability to have a bowel movement, Shortness of breath, Dizziness, Fainting spells, Swelling in the ankles, Chest pain and Uncontrolled pain Additional Instructions: DC home alone 08/06, [facility] PT/OT/SW/PURI, FWW FWW: Patient is unable to use a cane and requires a walker for ambulation in the home and the community. Meaningful Use Info Meaningful Use Diagnoses (Choose all that apply): None applicable Discharge Plan Admission Admit Date/Time: 07/24/23 14:28 Primary Reason for Your Visit: Debility. Attending Provider: Heath Sloan Chi Primary Care Provider: Care Physician,No Primary Instructions Additional Instructions / Restrictions: DC home alone 08/06, [facility] PT/OT/SW/PURI, FWW FWW: Patient is unable to use a cane and requires a walker for ambulation in the home and the community. Discharge Orders/Prescriptions Prescriptions: New polysaccharide iron complex [Ferrex 150] 150 mg iron Capsule 150 mg PO DAILY 30 Days Qty: 30 0RF amlodipine 2.5 mg Tablet 2.5 mg PO DAILY 30 Days Qty: 30 0RF ascorbic acid (vitamin C) 500 mg Tablet 500 mg PO DAILY 30 Days Qty: 30 0RF pantoprazole 40 mg Tablet,Delayed Release (Dr/Ec) 40 mg PO DAILY 30 Days Qty: 30 0RF Discontinued acetaminophen 325 mg Tablet 650 mg PO Q6H PRN PRN (Reason: Pain 1-10 Or Fever >100.7) Qty: 0 0RF amlodipine 2.5 mg Tablet 2.5 mg PO DAILY Qty: 0 0RF Rx Instructions: Hold for SBP less than 130 mmHg pantoprazole [Protonix] 40 mg tablet,delayed release (DR/EC) 40 mg PO BID 30 Days Qty: 60 2RF Rx Instructions: advised TWICE DAILY FOR 2 WEEKS THEN ONCE DAILY ferrous sulfate 325 mg (65 mg iron) tablet 325 mg PO QODAY Qty: 30 2RF ascorbic acid (vitamin C) 500 mg tablet 500 mg PO BID Qty: 60 2RF Referrals / Follow Up: Ashish Brown MD [Med Staff - Courtesy Staff] - (ENT appointment) Heath Sloan Chi, MD [Med Staff - Active Staff] - 08/07/23 Disposition Disposition (needs filled in before D/C Order can be placed): Home Health Service
[2023-07-31] MEDS: Phenol/Sodium Phenolate 180ML 3 SPRAY MUCOUS MEM (20:45)
[2023-07-31] MEDS: Montelukast 10 MG Tablet PO (20:47)
[2023-07-31 20:50] VITALS: RESP 16
[2023-08-01 04:36] VITALS: RESP 16
[2023-08-01 05:56] LABS: Absolute Lymphocyte Count 0.84 X10^3/uL (0.83-4.51); Absolute Neutrophil Count 2.3 X10^3/uL (2.0-7.7); Basophil# 0.02 X10^3/uL; Basophil% 0.5 % (0-1); Eosinophil# 0.16 X10^3/uL; Eosinophils% 4.3 % (0-5); Hematocrit 26.8 % (40-54); Hemoglobin 8.6 g/dL (13.0-16.5); Lymphocyte # 0.84 X10^3/ul (0.83-4.51); Lymphocyte % 22.3 % (19-41); Mean Corp Hgb Conc 32.1 g/dL (32-36); Mean Corpuscular Hgb 26.8 pg (27.0-32.0); Mean Corpuscular Volume 83.5 fL (80-94); Mean Platelet Vol. 8.1 fl (6.2-12.0); Monocyte% 10.6 % (0-10); NRBC Flagged by Analyzer 0 % (0-5); Neutrophil # 2.32 X10^3/uL (2.7-7.7); Neutrophil % 61.8 % (47-70); Platelet Count 318 K/mm3 (150-450); RBC Distribution Width CV 15.1 % (11.6-14.6); RBC Distribution Width SD 45.8 fl (35.1-43.9); Red Blood Count 3.21 M/mm3 (4.6-6.2); White Blood Count 3.8 K/mm3 (4.4-11.0)
[2023-08-01 06:16] LABS: Anion Gap 7 (5-15); BUN 18 mg/dL (7-18); BUN/Creat Ratio 20.8 RATIO (10-20); Calcium,Total 8.3 mg/dL (8.5-10.1); Chloride 100 mmol/L (98-107); Creatinine, Serum 0.86 mg/dL (0.70-1.30); EST Glomerular Filtration Rate 91 mL/min (>60); Est Glom Filt Rate - Afr Amer 110 mL/min (>60); Estimated Creatinine Clearance 80.38 ml/min; Glucose 100 mg/dL (74-106); Potassium 3.9 mmol/L (3.5-5.1); Sodium Level 133 mmol/L (136-145)
[2023-08-01] MEDS: Ipratropium Bromide 0.06% NASAL SPRAY 2 SPRAY NASAL ×2 (09:38→20:17)
[2023-08-01] MEDS: Furosemide 40 MG Tablet PO (09:39)
[2023-08-01] MEDS: Iron Polysaccharide Complex 150 MG CAPSULE PO (09:39)
[2023-08-01] MEDS: Potassium Chloride Oral Tablet 20 MEQ PO (09:39)
[2023-08-01] MEDS: amLODIPine 2.5 MG Tablet PO (09:39)
[2023-08-01] MEDS: Ascorbic Acid 500 MG Tablet PO (09:39)
[2023-08-01] MEDS: Pantoprazole Sodium 40 MG Tablet PO ×2 (09:39→20:17)
[2023-08-01] MEDS: guaiFENesin 600 MG Tablet PO (09:40)
[2023-08-01] MEDS: Menthol/Lanolin/Calamine/Znox 113 GM Tube 1 APPLIC TOPICAL ×2 (09:41→20:29)
[2023-08-01 09:46] VITALS: BP 119/57
[2023-08-01] MEDS: Tuberculin,Purif.prot.deriv. 50 TU/ML Vial 0.1 ML ID (11:43)
[2023-08-01] MEDS: Nystatin Powder 15gm Bottle 1 APPLIC TOPICAL ×2 (11:46→20:28)
[2023-08-01 15:29] VITALS: BP 104/53; PULSE 87; RESP 18; TEMP 36.6; O2SAT 98
[2023-08-01] MEDS: Montelukast 10 MG Tablet PO (20:17)
[2023-08-01] MEDS: Phenol/Sodium Phenolate 180ML 3 SPRAY MUCOUS MEM (20:18)
[2023-08-02 08:00] VITALS: BP 110/52
[2023-08-02] MEDS: Ipratropium Bromide 0.06% NASAL SPRAY 2 SPRAY NASAL ×2 (08:36→21:55)
[2023-08-02] MEDS: Potassium Chloride Oral Tablet 20 MEQ PO (08:36)
[2023-08-02] MEDS: Furosemide 40 MG Tablet PO (08:37)
[2023-08-02] MEDS: Iron Polysaccharide Complex 150 MG CAPSULE PO (08:37)
[2023-08-02] MEDS: Pantoprazole Sodium 40 MG Tablet PO ×2 (08:38→21:55)
[2023-08-02] MEDS: guaiFENesin 600 MG Tablet PO (08:38)
[2023-08-02] MEDS: Nystatin Powder 15gm Bottle 1 APPLIC TOPICAL ×2 (08:38→21:58)
[2023-08-02] MEDS: amLODIPine 2.5 MG Tablet PO (08:38)
[2023-08-02] MEDS: Ascorbic Acid 500 MG Tablet PO (08:39)
[2023-08-02] MEDS: Menthol/Lanolin/Calamine/Znox 113 GM Tube 1 APPLIC TOPICAL ×2 (08:41→21:57)
--- NOTE | 2023-08-02 11:14 | CASEMGMT ---
Social Work SW followed up with pt on HHC choices. Pt prefers [facility]. SW also provided pt with transportation resources for upcoming Drs appt. Discussed coordinating the [facility] Van for a new pt appt with Dr. Hung office at [place]. Pt agreed. SW updated city secretary and scheduled appt with transport. SW spoke with PERFORMANCE IMPROVEMENT COORDINATOR to practice car tx in the Van. SW phoned referral to [facility] for PT/OT/SW. Sabrina Arciniega, CLINICAL RN MANAGER EDUCATION SALES CONSULTANT
[2023-08-02 14:42] VITALS: BP 105/59; PULSE 90; RESP 16; TEMP 36.3; O2SAT 95
[2023-08-02] MEDS: Montelukast 10 MG Tablet PO (21:55)
[2023-08-02] MEDS: Phenol/Sodium Phenolate 180ML 3 SPRAY MUCOUS MEM (21:55)
[2023-08-03 05:44] VITALS: PULSE 84; RESP 16; O2SAT 97
[2023-08-03] MEDS: Potassium Chloride Oral Tablet 20 MEQ PO (09:25)
[2023-08-03] MEDS: amLODIPine 2.5 MG Tablet PO (09:26)
[2023-08-03] MEDS: Nystatin Powder 15gm Bottle 1 APPLIC TOPICAL ×2 (09:26→22:52)
[2023-08-03] MEDS: Pantoprazole Sodium 40 MG Tablet PO ×2 (09:26→22:51)
[2023-08-03] MEDS: Iron Polysaccharide Complex 150 MG CAPSULE PO (09:26)
[2023-08-03] MEDS: Menthol/Lanolin/Calamine/Znox 113 GM Tube 1 APPLIC TOPICAL ×2 (09:26→22:52)
[2023-08-03] MEDS: guaiFENesin 600 MG Tablet PO (09:26)
[2023-08-03] MEDS: Ascorbic Acid 500 MG Tablet PO (09:27)
[2023-08-03 14:48] VITALS: BP 119/58; PULSE 88; RESP 17; TEMP 36.6; O2SAT 97
[2023-08-03 16:02] VITALS: BP 155/69; PULSE 97; RESP 18; TEMP 36.9; O2SAT 99
--- NOTE | 2023-08-03 16:03 | NURSING ---
1939 staff heard noise from nurses station, staff headed down hernandez and pt family member (Carmen, cousin) came out in hernandez stating he needs help Found pt on floor sitting upright on buttocks at BR door, walker in front of him. pt denies hitting head, states that grippy socks were loose & twisted on his feet. states his feet slid on floor. he also stated that he usually has his tennis shoes on but this time he had just the grippy socks with SAGRARIO wraps under them. Skin intact, no injury noted. vitals stable. dr luna notified. x4 assist to standing position on feet then pt ambulated rest the way to toilet. pt instructed to call for assistance, educated pt that he will need to call for help with all transfers until therapy reassesses mobility and balance. pt verbalized understanding.
[2023-08-03 17:21] VITALS: BP 124/56; PULSE 88; TEMP 36.7
[2023-08-03] MEDS: Phenol/Sodium Phenolate 180ML 3 SPRAY MUCOUS MEM (22:50)
[2023-08-03] MEDS: Montelukast 10 MG Tablet PO (22:51)
--- NOTE | 2023-08-04 00:15 | NURSING ---
Emptied pt's urinal. This nurse informed pt per [id number] report he is to get up at night to use the bathroom w/ staff assist. Pt declines to get out of bed during the night after incident where he was lowered to the floor yesterday, even w/ staff assist. Will continue to monitor.
[2023-08-04 07:51] VITALS: BP 105/66; PULSE 84; RESP 16; TEMP 37; O2SAT 96
[2023-08-04] MEDS: Menthol/Lanolin/Calamine/Znox 113 GM Tube 1 APPLIC TOPICAL ×2 (07:53→21:09)
[2023-08-04] MEDS: Iron Polysaccharide Complex 150 MG CAPSULE PO (07:53)
[2023-08-04] MEDS: Pantoprazole Sodium 40 MG Tablet PO ×2 (07:54→21:10)
[2023-08-04] MEDS: Nystatin Powder 15gm Bottle 1 APPLIC TOPICAL ×2 (07:54→21:12)
[2023-08-04] MEDS: guaiFENesin 600 MG Tablet PO (07:54)
[2023-08-04] MEDS: amLODIPine 2.5 MG Tablet PO (07:54)
[2023-08-04] MEDS: Ascorbic Acid 500 MG Tablet PO (07:55)
[2023-08-04] MEDS: Phenol/Sodium Phenolate 180ML 3 SPRAY MUCOUS MEM (21:09)
[2023-08-04] MEDS: Montelukast 10 MG Tablet PO (21:10)
[2023-08-05 08:53] VITALS: BP 113/52; PULSE 88; RESP 16; TEMP 36.8; O2SAT 96
[2023-08-05] MEDS: Pantoprazole Sodium 40 MG Tablet PO ×2 (08:53→22:13)
[2023-08-05] MEDS: amLODIPine 2.5 MG Tablet PO (08:53)
[2023-08-05] MEDS: Iron Polysaccharide Complex 150 MG CAPSULE PO (08:53)
[2023-08-05] MEDS: Ascorbic Acid 500 MG Tablet PO (08:53)
[2023-08-05] MEDS: Menthol/Lanolin/Calamine/Znox 113 GM Tube 1 APPLIC TOPICAL ×2 (08:54→22:15)
[2023-08-05] MEDS: Nystatin Powder 15gm Bottle 1 APPLIC TOPICAL ×2 (08:55→22:14)
[2023-08-05 12:31] VITALS: PULSE 91; RESP 16; O2SAT 96
[2023-08-06 09:03] VITALS: BP 120/57; PULSE 86; RESP 16; TEMP 36.4; O2SAT 96
[2023-08-06] MEDS: amLODIPine 2.5 MG Tablet PO (09:05)
[2023-08-06] MEDS: Ascorbic Acid 500 MG Tablet PO (09:05)
[2023-08-06] MEDS: Menthol/Lanolin/Calamine/Znox 113 GM Tube 1 APPLIC TOPICAL ×2 (09:05→21:00)
[2023-08-06] MEDS: Pantoprazole Sodium 40 MG Tablet PO ×2 (09:05→21:00)
[2023-08-06] MEDS: Iron Polysaccharide Complex 150 MG CAPSULE PO (09:05)
[2023-08-06] MEDS: Nystatin Powder 15gm Bottle 1 APPLIC TOPICAL ×2 (09:06→21:00)
[2023-08-06 09:43] VITALS: BMI 28.0
--- NOTE | 2023-08-06 10:24 | MDS.RN ---
Information for the mds was obtained from review of the clinical record, interview of resident, staff and direct observation of resident's care.
[2023-08-06 19:37] VITALS: BP 111/54; PULSE 88; RESP 16; TEMP 36.6; O2SAT 95
[2023-08-06 21:05] VITALS: RESP 16
[2023-08-07 06:33] VITALS: RESP 16
[2023-08-07] MEDS: amLODIPine 2.5 MG Tablet PO (08:17)
[2023-08-07] MEDS: Iron Polysaccharide Complex 150 MG CAPSULE PO (08:17)
[2023-08-07] MEDS: Pantoprazole Sodium 40 MG Tablet PO (08:18)
[2023-08-07] MEDS: Ascorbic Acid 500 MG Tablet PO (08:18)
[2023-08-07] MEDS: Nystatin Powder 15gm Bottle 1 APPLIC TOPICAL (08:20)
[2023-08-07] MEDS: Menthol/Lanolin/Calamine/Znox 113 GM Tube 1 APPLIC TOPICAL (08:20)
[2023-08-07 15:03] VITALS: BP 111/54; PULSE 88; RESP 16; TEMP 36.6; O2SAT 95
--- NOTE | 2023-08-07 15:21 | CASEMGMT ---
Social Work BIMS () and PHQ-2 () completed for MDS assessment. Sabrina Arciniega MSW CODING QUALITY COORDINATOR
== END 2023-08-07 20:00 | disposition home health service (06) | DRG 378 ==
PROVIDERS: Admitting Provider Family Medicine Geriatric Medicine; Visit Provider Family Medicine Geriatric Medicine
DX: K26.4 Chronic or unspecified duodenal ulcer with hemorrhage (principal); G93.40 Encephalopathy, unspecified; D62 Acute posthemorrhagic anemia; I10 Essential (primary) hypertension; K44.9 Diaphragmatic hernia without obstruction or gangrene; K57.90 Diverticulosis of intestine, part unspecified, without perforation or abscess without bleeding; B35.4 Tinea corporis; Z79.899 Other long term (current) drug therapy; R60.9 Edema, unspecified
CPT/HCPCS: 36415; 80048; 85014; 85018; 85025; 92507; 92523; 97110; 97116; 97162; 97166; 97530; 97535

== ENCOUNTER → 2023-08-09 | Outpatient (CLI) | payer MEDICARE, SELFPAY ==
[2023-08-09 12:18] LABS: Absolute Lymphocyte Count 0.81 X10^3/uL (0.83-4.51); Absolute Neutrophil Count 4.7 X10^3/uL (2.0-7.7); Basophil# 0.05 X10^3/uL; Basophil% 0.8 % (0-1); Eosinophil# 0.18 X10^3/uL; Eosinophils% 2.9 % (0-5); Hematocrit 29.1 % (40-54); Lymphocyte # 0.81 X10^3/ul (0.83-4.51); Lymphocyte % 12.9 % (19-41); Mean Corp Hgb Conc 30.9 g/dL (32-36); Mean Corpuscular Hgb 25.8 pg (27.0-32.0); Mean Corpuscular Volume 83.4 fL (80-94); Mean Platelet Vol. 8.2 fl (6.2-12.0); Monocyte# 0.54 X10^3/uL; Monocyte% 8.6 % (0-10); NRBC Flagged by Analyzer 0 % (0-5); Neutrophil # 4.68 X10^3/uL (2.7-7.7); Neutrophil % 74.3 % (47-70); Platelet Count 358 K/mm3 (150-450); RBC Distribution Width CV 14.6 % (11.6-14.6); RBC Distribution Width SD 44.2 fl (35.1-43.9); Red Blood Count 3.49 M/mm3 (4.6-6.2); White Blood Count 6.3 K/mm3 (4.4-11.0)
[2023-08-09 13:28] LABS: Hepatitis C Antibody Non-Reactive (Nonreactive); Vitamin D,25 Hydroxy 22.8 ng/mL
[2023-08-09 13:50] LABS: ALB/GLOB Ratio 0.9 RATIO (0.9-2.4); AST(SGOT) 21 U/L (15-37); Alanine Aminotransfer ALT/SGPT 25 U/L (16-61); Albumin, Serum 3.1 g/dL (3.2-5.0); Alkaline Phosphatase 95 U/L (45-117); Anion Gap 7 (5-15); BUN 17 mg/dL (7-18); BUN/Creat Ratio 18.9 RATIO (10-20); Calcium,Total 8.8 mg/dL (8.5-10.1); Chloride 99 mmol/L (98-107); EST Glomerular Filtration Rate 87 mL/min (>60); Est Glom Filt Rate - Afr Amer 105 mL/min (>60); Globulin 3.5 g/dL (2.2-4.2); Glucose 102 mg/dL (74-106); Potassium 4.1 mmol/L (3.5-5.1); Protein, Total 6.6 g/dL (6.4-8.2); Sodium Level 131 mmol/L (136-145); Thyroid Stim Hormone (TSH) 2.34 uIU/mL (0.358-3.74)
== END | disposition home or self-care (01) ==
LOC: POLAB3 11:33
PROVIDERS: Visit Provider Family Medicine Geriatric Medicine
DX: I10 Essential (primary) hypertension (principal); E78.5 Hyperlipidemia, unspecified; E55.9 Vitamin D deficiency, unspecified; Z12.5 Encounter for screening for malignant neoplasm of prostate; Z13.89 Encounter for screening for other disorder
CPT/HCPCS: 36415; 80053; 82306; 84153; 84443; 85025; 86803; G0103

== ENCOUNTER → 2023-08-27 | Outpatient (CLI) | payer MEDICARE, SELFPAY | END | disposition home or self-care (01) | LOC: LAB 11:24 | PROVIDERS: PCP Family Medicine Geriatric Medicine; Referring Provider Urology; Visit Provider Urology | DX: R97.20 Elevated prostate specific antigen [PSA] (principal) | CPT/HCPCS: 36415; 84153 ==

== ENCOUNTER → 2023-09-13 | Outpatient (CLI) | payer MEDICARE, SELFPAY ==
[2023-09-13 13:12] LABS: Absolute Lymphocyte Count 0.76 X10^3/uL (0.83-4.51); Absolute Neutrophil Count 3.6 X10^3/uL (2.0-7.7); Basophil# 0.02 X10^3/uL; Basophil% 0.4 % (0-1); Eosinophil# 0.09 X10^3/uL; Eosinophils% 1.9 % (0-5); Hematocrit 34.7 % (40-54); Hemoglobin 10.8 g/dL (13.0-16.5); Lymphocyte # 0.76 X10^3/ul (0.83-4.51); Lymphocyte % 15.8 % (19-41); Mean Corp Hgb Conc 31.1 g/dL (32-36); Mean Corpuscular Hgb 26.3 pg (27.0-32.0); Mean Corpuscular Volume 84.4 fL (80-94); Mean Platelet Vol. 8.5 fl (6.2-12.0); Monocyte# 0.36 X10^3/uL; Monocyte% 7.5 % (0-10); NRBC Flagged by Analyzer 0 % (0-5); Neutrophil # 3.55 X10^3/uL (2.7-7.7); Platelet Count 258 K/mm3 (150-450); RBC Distribution Width CV 16.2 % (11.6-14.6); RBC Distribution Width SD 49.7 fl (35.1-43.9); Red Blood Count 4.11 M/mm3 (4.6-6.2); White Blood Count 4.8 K/mm3 (4.4-11.0)
[2023-09-13 13:44] LABS: Anion Gap 4 (5-15); BUN 12 mg/dL (7-18); BUN/Creat Ratio 13.3 RATIO (10-20); Chloride 104 mmol/L (98-107); EST Glomerular Filtration Rate 87 mL/min (>60); Est Glom Filt Rate - Afr Amer 105 mL/min (>60); Glucose 131 mg/dL (74-106); Potassium 3.9 mmol/L (3.5-5.1); Sodium Level 136 mmol/L (136-145)
[2023-09-16 15:06] LABS: Hemoglobin A1c 4.9 % (3.8-5.6)
== END | disposition home or self-care (01) ==
LOC: LAB 11:47
PROVIDERS: PCP Family Medicine Geriatric Medicine; Referring Provider Family Medicine Geriatric Medicine; Visit Provider Family Medicine Geriatric Medicine
DX: I10 Essential (primary) hypertension (principal); D50.9 Iron deficiency anemia, unspecified; R73.09 Other abnormal glucose
CPT/HCPCS: 36415; 80048; 83036; 85025

== ENCOUNTER → 2023-11-11 | Outpatient (CLI) | payer MEDICARE, SELFPAY ==
[2023-11-11 11:25] LABS: Absolute Lymphocyte Count 0.88 X10^3/uL (0.83-4.51); Absolute Neutrophil Count 2.9 X10^3/uL (2.0-7.7); Basophil# 0.03 X10^3/uL; Basophil% 0.7 % (0-1); Eosinophil# 0.09 X10^3/uL; Eosinophils% 2.1 % (0-5); Hematocrit 40.4 % (40-54); Lymphocyte # 0.88 X10^3/ul (0.83-4.51); Lymphocyte % 20.9 % (19-41); Mean Corp Hgb Conc 32.2 g/dL (32-36); Mean Corpuscular Hgb 28.1 pg (27.0-32.0); Mean Corpuscular Volume 87.3 fL (80-94); Mean Platelet Vol. 8.4 fl (6.2-12.0); Monocyte# 0.36 X10^3/uL; Monocyte% 8.5 % (0-10); NRBC Flagged by Analyzer 0 % (0-5); Neutrophil # 2.85 X10^3/uL (2.7-7.7); Neutrophil % 67.6 % (47-70); Platelet Count 190 K/mm3 (150-450); RBC Distribution Width CV 16.6 % (11.6-14.6); RBC Distribution Width SD 53.1 fl (35.1-43.9); Red Blood Count 4.63 M/mm3 (4.6-6.2); White Blood Count 4.2 K/mm3 (4.4-11.0)
[2023-11-11 11:42] LABS: Vitamin D,25 Hydroxy 21.2 ng/mL
[2023-11-11 11:46] LABS: ALB/GLOB Ratio 1.1 RATIO (0.9-2.4); AST(SGOT) 18 U/L (15-37); Alanine Aminotransfer ALT/SGPT 16 U/L (16-61); Albumin, Serum 3.6 g/dL (3.2-5.0); Alkaline Phosphatase 79 U/L (45-117); Anion Gap 6 (5-15); BUN 13 mg/dL (7-18); BUN/Creat Ratio 13.4 RATIO (10-20); Calcium,Total 9.2 mg/dL (8.5-10.1); Chloride 105 mmol/L (98-107); Creatinine, Serum 0.97 mg/dL (0.70-1.30); EST Glomerular Filtration Rate 80 mL/min (>60); Est Glom Filt Rate - Afr Amer 97 mL/min (>60); Globulin 3.4 g/dL (2.2-4.2); Glucose 96 mg/dL (74-106); Sodium Level 138 mmol/L (136-145); Thyroid Stim Hormone (TSH) 2.01 uIU/mL (0.358-3.74)
== END | disposition home or self-care (01) ==
LOC: POLAB3 10:41
PROVIDERS: PCP Family Medicine Geriatric Medicine; Visit Provider Family Medicine Geriatric Medicine
DX: I10 Essential (primary) hypertension (principal); E55.9 Vitamin D deficiency, unspecified
CPT/HCPCS: 36415; 80053; 82306; 84443; 85025

== ENCOUNTER → 2024-08-10 | Outpatient (CLI) | payer MEDICARE, SELFPAY ==
[2024-08-10 12:39] LABS: Absolute Lymphocyte Count 1.08 X10^3/uL (0.83-4.51); Absolute Neutrophil Count 3.5 X10^3/uL (2.0-7.7); Basophil# 0.03 X10^3/uL; Basophil% 0.6 % (0-1); Hematocrit 41.1 % (40-54); Hemoglobin 14.3 g/dL (13.0-16.5); Lymphocyte # 1.08 X10^3/ul (0.83-4.51); Lymphocyte % 21.6 % (19-41); Mean Corp Hgb Conc 34.8 g/dL (32-36); Mean Corpuscular Hgb 32.2 pg (27.0-32.0); Mean Corpuscular Volume 92.6 fL (80-94); Mean Platelet Vol. 8.3 fl (6.2-12.0); Monocyte# 0.34 X10^3/uL; Monocyte% 6.8 % (0-10); NRBC Flagged by Analyzer 0 % (0-5); Neutrophil # 3.45 X10^3/uL (2.7-7.7); Neutrophil % 68.8 % (47-70); Platelet Count 199 K/mm3 (150-450); RBC Distribution Width CV 12.2 % (11.6-14.6); RBC Distribution Width SD 41.8 fl (35.1-43.9); Red Blood Count 4.44 M/mm3 (4.6-6.2)
[2024-08-10 13:26] LABS: ALB/GLOB Ratio 1.5 RATIO (0.9-2.4); AST(SGOT) 22 U/L (<=37); Alanine Aminotransfer ALT/SGPT 12 U/L (<=46); Albumin, Serum 4.1 g/dL (3.4-4.8); Alkaline Phosphatase 84 U/L (40-129); Anion Gap 10 (5-15); BUN 16 mg/dL (4-19); BUN/Creat Ratio 15.3 RATIO (10-20); Calcium,Total 9.3 mg/dL (7.6-11.0); Carbon Dioxide 24.8 mmol/L (21.0-32.0); Chloride 102 mmol/L (98-108); Creatinine, Serum 1.02 mg/dL (0.70-1.20); EST Glomerular Filtration Rate 75 (>60); Globulin 2.8 g/dL (2.2-4.2); Glucose 92 mg/dL (70-99); Potassium 4.6 mmol/L (3.3-5.1); Protein, Total 6.9 g/dL (5.9-8.4); Sodium Level 137 mmol/L (133-145); Total Bilirubin 1.09 mg/dL (0.00-1.30); Vitamin D,25 Hydroxy 24.9 ng/mL (30-100)
== END | disposition home or self-care (01) ==
PROVIDERS: PCP Family Medicine Geriatric Medicine; Referring Provider Family Medicine Geriatric Medicine; Visit Provider Family Medicine Geriatric Medicine
DX: I10 Essential (primary) hypertension (principal); E55.9 Vitamin D deficiency, unspecified
CPT/HCPCS: 36415; 80053; 82306; 84443; 85025

== ENCOUNTER → 2025-02-02 | Outpatient (CLI) | payer MEDICARE, SELFPAY ==
[2025-02-02 11:01] LABS: Hematocrit 40.6 % (40-54); Hemoglobin 14.2 g/dL (13.0-16.5); Immature Granulocytes Count 0.020 X10^3/uL (0.0-0.0); Mean Corp Hgb Conc 35.0 g/dL (32-36); Mean Corpuscular Volume 93.3 fL (80-94); Mean Platelet Vol. 8.0 fl (6.2-12.0); NRBC Flagged by Analyzer 0 % (0-5); Platelet Count 210 K/mm3 (150-450); RBC Distribution Width CV 12.3 % (11.6-14.6); RBC Distribution Width SD 42.5 fl (35.1-43.9); Red Blood Count 4.35 M/mm3 (4.6-6.2); White Blood Count 5.8 K/mm3 (4.4-11.0)
[2025-02-02 11:44] LABS: AST(SGOT) 19 U/L (<=37); Alanine Aminotransfer ALT/SGPT 12 U/L (<=46); Albumin, Serum 4.2 g/dL (3.4-4.8); Alkaline Phosphatase 80 U/L (40-129); Anion Gap 11 (5-15); BUN 13 mg/dL (4-19); BUN/Creat Ratio 13.4 RATIO (10-20); Calcium,Total 9.4 mg/dL (7.6-11.0); Carbon Dioxide 25.2 mmol/L (21.0-32.0); Chloride 101 mmol/L (98-108); Globulin 2.6 g/dL (2.2-4.2); Glucose 117 mg/dL (70-99); Potassium 4.2 mmol/L (3.3-5.1); Vitamin D,25 Hydroxy 25.1 ng/mL (30-100)
[2025-02-02 18:50] LABS: Xtra Tube Kwok EXTRA TUBE
== END | disposition home or self-care (01) ==
LOC: POLAB3 10:48
PROVIDERS: PCP Family Medicine Geriatric Medicine; Visit Provider Family Medicine Geriatric Medicine
DX: I10 Essential (primary) hypertension (principal); E03.9 Hypothyroidism, unspecified; E55.9 Vitamin D deficiency, unspecified
CPT/HCPCS: 36415; 80053; 82306; 84443; 85025